=== PATIENT | female | born 1945 | race Caucasian/White ===

== ENCOUNTER 2020-11-05 08:06 | Outpatient (REF) | payer MEDICARE, SELFPAY ==
[2020-11-05 09:28] LABS: Estimated Average Glucose 114 mg/dL; Hemoglobin A1c % 5.6 %
[2020-11-05 09:46] LABS: Alanine Aminotransferase 21 U/L (0-31); Albumin Level 4.5 g/dL (3.5-5.0); Alkaline Phosphatase 48 U/L (39-117); Anion Gap 15 (12-20); Aspartate Amino Transferase 17 U/L (5-31); Bilirubin Total 0.8 mg/dL (0.0-1.0); Blood Urea Nitrogen 19 mg/dL (9-16); Calcium 10.1 mg/dL (8.4-10.2); Carbon Dioxide 33 mmol/L (22-29); Chloride 94 mmol/L (96-108); Cholesterol 170 mg/dL; Estimated Glomerular Filt Rate 58; Glucose Random 114 mg/dL (60-115); HDL Cholesterol 88 mg/dL; LDL Cholesterol Calculated 71 mg/dl; Potassium 3.9 mmol/l (3.3-5.1); Sodium 138 mmol/L (135-145); Total Protein 7.8 g/dL (6.5-8.0); Triglycerides 56 mg/dL
== END 2020-11-05 08:07 | disposition home or self-care (01) ==
LOC: HO.LAB 08:06
PROVIDERS: PCP Internal Medicine; Visit Provider Internal Medicine
DX: E11.9 Type 2 diabetes mellitus without complications (principal); I10 Essential (primary) hypertension; E03.8 Other specified hypothyroidism; E78.00 Pure hypercholesterolemia, unspecified; Z68.28 Body mass index [BMI] 28.0-28.9, adult
CPT/HCPCS: 36415; 80053; 80061; 83036

== ENCOUNTER 2020-12-04 08:53 | Outpatient (REF) | payer MEDICARE, SELFPAY ==
--- NOTE | ~2020-12-04 | FL_ITS ---
EXAMINATION: FL BARIUM SWALLOW CLINICAL INFORMATION: Dysphagia, postnasal drip COMPARISON: None TECHNIQUE: Barium swallow examination is performed using fluoroscopic evaluation in addition to multiple fluoroscopic spot views. The patient is imaged both upright and prone and using both thick and thin sulfate along with effervescent granules. Fluoroscopy time: 1.1 minutes DAP: 0.676 Gycm2 Images: 33 FINDINGS: Swallowing function is normal and there is no aspiration. The cervical esophagus has no web or diverticulum or stricture. The cervical thoracic junction appears normal. There is decreased primary thoracic peristaltic activity with some delayed transient of the swallowed bolus. There is no tertiary contractions. There is no functional or mechanical obstruction or stricture or ulceration. There is no hiatal hernia seen despite use of provocative maneuver (prone Valsalva). There is spontaneous gastroesophageal reflux noted during fluoroscopy to upper thoracic esophagus.. FL/FL barium swallow IMPRESSION: 1. Decreased primary esophageal peristalsis. No tertiary contractions. 2. Spontaneous gastroesophageal reflux to proximal thoracic esophagus. 3. No stricture or ulceration.
== END 2020-12-04 08:54 | disposition home or self-care (01) ==
LOC: HO.XRAY 08:53
PROVIDERS: PCP Internal Medicine; Visit Provider Internal Medicine
DX: R13.10 Dysphagia, unspecified (principal)
CPT/HCPCS: 74220

== ENCOUNTER 2021-02-02 08:28 | Outpatient (REF) | payer MEDICARE, SELFPAY ==
[2021-02-02 09:27] LABS: Estimated Average Glucose 111 mg/dL; Hemoglobin A1c % 5.5 %
[2021-02-02 09:31] LABS: Alanine Aminotransferase 25 U/L (0-31); Albumin Level 4.4 g/dL (3.5-5.0); Alkaline Phosphatase 46 U/L (39-117); Anion Gap 17 (12-20); Aspartate Amino Transferase 21 U/L (5-31); Bilirubin Total 0.7 mg/dL (0.0-1.0); Blood Urea Nitrogen 19 mg/dL (9-16); Calcium 9.7 mg/dL (8.4-10.2); Carbon Dioxide 28 mmol/L (22-29); Chloride 94 mmol/L (96-108); Estimated Glomerular Filt Rate > 60; Glucose Random 119 mg/dL (60-115); Potassium 3.7 mmol/L (3.3-5.1); Sodium 135 mmol/L (135-145); Total Protein 7.6 g/dL (6.5-8.0)
[2021-02-02 09:53] LABS: Thyroid Stimulating Hormone 2.09 uIU/mL (0.32-4.0)
== END 2021-02-02 08:29 | disposition home or self-care (01) ==
LOC: HO.LAB 08:28
PROVIDERS: PCP Internal Medicine; Visit Provider Internal Medicine
DX: E11.9 Type 2 diabetes mellitus without complications (principal); E78.00 Pure hypercholesterolemia, unspecified; E89.0 Postprocedural hypothyroidism; I10 Essential (primary) hypertension; R13.19 Other dysphagia
CPT/HCPCS: 36415; 80053; 83036; 84443

== ENCOUNTER 2021-06-16 10:51 | Outpatient (REF) | payer MEDICARE, SELFPAY ==
[2021-06-16 12:14] LABS: MANUAL DIFF FLAG NO
[2021-06-16 12:19] LABS: Basophils Percent Auto 0.4 % (0-2); Eosinophils Absolute Auto 0.1 X10*3/uL (0.0-0.4); Hematocrit 41.4 % (37-47); Hemoglobin 14.1 g/dl (12.0-16.0); Imm Gran Abs Auto 0.03 X10*3/uL (0.00-0.03); Imm Gran Pct Auto 0.6 % (0.0-0.4); Lymphocytes Absolute Auto 0.3 X10*3/uL (1.2-4.9); Lymphocytes Percent Auto 5.4 % (20-40); Mean Corpuscular HGB Conc 34.1 g/dl (31.0-35.0); Mean Corpuscular Hemoglobin 29.8 pg (27.0-33.0); Mean Corpuscular Volume 87.5 fL (80-98); Monocytes Absolute Auto 0.5 X10*3/uL (0.1-1.2); Monocytes Percent Auto 9.5 % (2-11); Neutrophils Percent Auto 83.1 % (45-73); Platelet Count 246 X10*3/uL (160-400); Red Blood Count 4.73 X10*6/uL (4.20-5.50); Red Cell Distribution Width 12.7 % (11.0-16.0); White Blood Count 4.8 X10*3/uL (4.8-10.8)
[2021-06-16 12:42] LABS: Alanine Aminotransferase 31 U/L (0-31); Albumin Level 4.5 g/dL (3.5-5.0); Alkaline Phosphatase 51 U/L (39-117); Aspartate Amino Transferase 16 U/L (5-31); Bilirubin Direct 0.3 mg/dL (0.0-0.5); Bilirubin Total 0.6 mg/dL (0.0-1.0); Total Protein 7.5 g/dL (6.5-8.0)
== END 2021-06-16 10:52 | disposition home or self-care (01) ==
LOC: HO.LAB 10:51
PROVIDERS: PCP Internal Medicine; Visit Provider Psychiatry & Neurology Neurology
DX: G35 Multiple sclerosis (principal)
CPT/HCPCS: 36415; 80076; 85025

== ENCOUNTER 2021-08-04 09:36 | Outpatient (REF) | payer MEDICARE, SELFPAY ==
[2021-08-04 10:04] LABS: Basophils Percent Auto 0.9 % (0-2); Eosinophils Absolute Auto 0.1 X10*3/uL (0.0-0.4); Eosinophils Percent Auto 3.9 % (0-4); Hematocrit 40.3 % (37-47); Hemoglobin 13.7 g/dl (12.0-16.0); Imm Gran Abs Auto 0.02 X10*3/uL (0.00-0.03); Imm Gran Pct Auto 0.9 % (0.0-0.4); Lymphocytes Absolute Auto 0.3 X10*3/uL (1.2-4.9); Lymphocytes Percent Auto 11.4 % (20-40); MANUAL DIFF FLAG SCAN; Mean Corpuscular Hemoglobin 29.8 pg (27.0-33.0); Mean Corpuscular Volume 87.8 fL (80-98); Mean Platelet Volume 9.5 fL (9.4-12.3); Monocytes Absolute Auto 0.3 X10*3/uL (0.1-1.2); Monocytes Percent Auto 13.1 % (2-11); Neutrophils Absolute Auto 1.6 X10*3/uL (2.0-8.3); Neutrophils Percent Auto 69.8 % (45-73); Platelet Count 236 X10*3/uL (160-400); Red Blood Count 4.59 X10*6/uL (4.20-5.50); Red Cell Distribution Width 13.2 % (11.0-16.0); SCAN SMEAR FLAG 1
[2021-08-04 10:07] LABS: White Blood Count 2.3 X10*3/uL (4.8-10.8)
[2021-08-04 10:19] LABS: Estimated Average Glucose 120 mg/dL; Hemoglobin A1c % 5.8 %
[2021-08-04 10:29] LABS: Alanine Aminotransferase 45 U/L (0-31); Albumin Level 4.6 g/dL (3.5-5.0); Alkaline Phosphatase 47 U/L (39-117); Anion Gap 13 (12-20); Aspartate Amino Transferase 26 U/L (5-31); Bilirubin Total 0.7 mg/dL (0.0-1.0); Blood Urea Nitrogen 13 mg/dL (9-16); Calcium 10.3 mg/dL (8.4-10.2); Carbon Dioxide 33 mmol/L (22-29); Chloride 94 mmol/L (96-108); Cholesterol 167 mg/dL; Estimated Glomerular Filt Rate 54; Glucose Random 125 mg/dL (60-115); HDL Cholesterol 79 mg/dL; LDL Cholesterol Calculated 77 mg/dl; Potassium 3.7 mmol/L (3.3-5.1); Sodium 136 mmol/L (135-145); Total Protein 7.7 g/dL (6.5-8.0); Triglycerides 55 mg/dL
[2021-08-04 10:50] LABS: Thyroid Stimulating Hormone 2.97 uIU/mL (0.32-4.0)
[2021-08-04 11:06] LABS: SLIDE REVIEW VERIFIED
== END 2021-08-04 09:37 | disposition home or self-care (01) ==
LOC: HO.LAB 09:36
PROVIDERS: PCP Internal Medicine; Visit Provider Internal Medicine
DX: E78.00 Pure hypercholesterolemia, unspecified (principal); E89.0 Postprocedural hypothyroidism; I10 Essential (primary) hypertension; R13.19 Other dysphagia; R73.01 Impaired fasting glucose
CPT/HCPCS: 36415; 80053; 80061; 83036; 84443; 85025

== ENCOUNTER 2021-11-12 08:07 | Outpatient (REF) | payer MEDICARE, SELFPAY ==
[2021-11-12 08:35] LABS: MANUAL DIFF FLAG NO
[2021-11-12 09:12] LABS: Eosinophils Absolute Auto 0.1 X10*3/uL (0.0-0.4); Eosinophils Percent Auto 4.1 % (0-4); Hematocrit 41.6 % (37.0-47.0); Hemoglobin 13.9 g/dl (12.0-16.0); Imm Gran Abs Auto 0.02 X10*3/uL (0.00-0.03); Imm Gran Pct Auto 0.7 % (0.0-0.4); Lymphocytes Absolute Auto 0.3 X10*3/uL (1.2-4.9); Lymphocytes Percent Auto 9.2 % (20-40); Mean Corpuscular HGB Conc 33.4 g/dl (31.0-35.0); Mean Corpuscular Hemoglobin 29.6 pg (27.0-33.0); Mean Corpuscular Volume 88.7 fL (80.0-98.0); Mean Platelet Volume 10.2 fL (9.4-12.3); Monocytes Absolute Auto 0.4 X10*3/uL (0.1-1.2); Neutrophils Absolute Auto 2.1 x10*3/uL (2.0-8.3); Platelet Count 245 X10*3/uL (160-400); Red Blood Count 4.69 X10*6/uL (4.20-5.50); Red Cell Distribution Width 13.1 % (11.0-16.0); White Blood Count 2.9 X10*3/uL (4.8-10.8)
[2021-11-12 09:29] LABS: Creatinine Urine 211.76 mg/dL; Microalbum/Creatinine Ratio Ur 13.6 ug/mg cr
[2021-11-12 09:34] LABS: Estimated Average Glucose 120 mg/dL; Hemoglobin A1C 150.4382 umol/L; Hemoglobin A1c % 5.8 %
[2021-11-12 09:36] LABS: Calcium 10.2 mg/dL (8.4-10.2); Phosphorus 3.4 mg/dL (2.7-4.5)
[2021-11-12 10:01] LABS: Vitamin D 25-OH Total 38.9 ng/mL (>30)
[2021-11-13 13:06] LABS: PTHI 36 pg/mL (14-64)
== END 2021-11-12 08:08 | disposition home or self-care (01) ==
LOC: HO.LAB 08:07
PROVIDERS: PCP Internal Medicine; Visit Provider Internal Medicine
DX: E78.00 Pure hypercholesterolemia, unspecified (principal); E83.52 Hypercalcemia; E89.0 Postprocedural hypothyroidism; I10 Essential (primary) hypertension
CPT/HCPCS: 36415; 82043; 82306; 82310; 83036; 83970; 84100; 85025

== ENCOUNTER 2021-12-15 10:50 | Outpatient (REF) | payer MEDICARE, SELFPAY ==
[2021-12-15 12:39] LABS: Alanine Aminotransferase 30 U/L (0-31); Albumin Level 4.4 g/dL (3.5-5.0); Alkaline Phosphatase 48 U/L (39-117); Aspartate Amino Transferase 22 U/L (5-31); Bilirubin Direct 0.3 mg/dL (0.0-0.5); Bilirubin Total 0.7 mg/dL (0.0-1.0); Total Protein 7.6 g/dL (6.5-8.0)
== END 2021-12-15 10:51 | disposition home or self-care (01) ==
LOC: HO.LAB 10:50
PROVIDERS: PCP Internal Medicine; Visit Provider Psychiatry & Neurology Neurology
DX: G35 Multiple sclerosis (principal)
CPT/HCPCS: 36415; 80076

== ENCOUNTER 2022-04-05 09:21 | Outpatient (REF) | payer MEDICARE, SELFPAY ==
[2022-04-05 10:16] LABS: Estimated Average Glucose 117 mg/dL; Hemoglobin A1c % 5.7 %
[2022-04-05 10:52] LABS: Alanine Aminotransferase 48 U/L (0-31); Albumin Level 4.3 g/dL (3.5-5.0); Alkaline Phosphatase 52 U/L (39-117); Anion Gap 14 (12-20); Aspartate Amino Transferase 35 U/L (5-31); Bilirubin Total 0.7 mg/dL (0.0-1.0); Blood Urea Nitrogen 17 mg/dL (9-16); Calcium 9.7 mg/dL (8.4-10.2); Carbon Dioxide 34 mmol/L (22-29); Chloride 82 mmol/L (96-108); Cholesterol 149 mg/dL; Estimated Glomerular Filt Rate > 60; Glucose Random 125 mg/dL (60-115); HDL Cholesterol 71 mg/dL; LDL Cholesterol Calculated 66 mg/dl; Potassium 3.8 mmol/L (3.3-5.1); Sodium 126 mmol/L (135-145); Total Protein 7.9 g/dL (6.5-8.0); Triglycerides 61 mg/dL
[2022-04-05 11:03] LABS: Thyroid Stimulating Hormone 3.24 uIU/mL (0.32-4.0)
== END 2022-04-05 09:22 | disposition home or self-care (01) ==
LOC: HO.LAB 09:21
PROVIDERS: PCP Internal Medicine; Visit Provider Internal Medicine
DX: E11.9 Type 2 diabetes mellitus without complications (principal); E78.00 Pure hypercholesterolemia, unspecified; E83.52 Hypercalcemia; E89.0 Postprocedural hypothyroidism
CPT/HCPCS: 36415; 80053; 80061; 83036; 84443

== ENCOUNTER 2022-04-20 07:58 | Outpatient (REF) | payer MEDICARE, SELFPAY ==
[2022-04-20 09:18] LABS: Alanine Aminotransferase 33 U/L (0-31); Albumin Level 4.2 g/dL (3.5-5.0); Alkaline Phosphatase 46 U/L (39-117); Anion Gap 13 (12-20); Aspartate Amino Transferase 21 U/L (5-31); Bilirubin Total 0.6 mg/dL (0.0-1.0); Blood Urea Nitrogen 11 mg/dL (9-16); Calcium 9.5 mg/dL (8.4-10.2); Carbon Dioxide 33 mmol/L (22-29); Chloride 91 mmol/L (96-108); Estimated Glomerular Filt Rate 59; Glucose Random 128 mg/dL (60-115); Potassium 3.1 mmol/L (3.3-5.1); Sodium 134 mmol/L (135-145); Total Protein 7.4 g/dL (6.5-8.0)
== END 2022-04-20 07:59 | disposition home or self-care (01) ==
LOC: HO.LAB 07:58
PROVIDERS: PCP Internal Medicine; Visit Provider Internal Medicine
DX: E03.8 Other specified hypothyroidism (principal); E87.1 Hypo-osmolality and hyponatremia; F32.9 Major depressive disorder, single episode, unspecified; I10 Essential (primary) hypertension; R43.2 Parageusia; R53.83 Other fatigue
CPT/HCPCS: 36415; 80053

== ENCOUNTER 2022-05-17 08:44 | Outpatient (REF) | payer MEDICARE, SELFPAY ==
[2022-05-17 11:00] LABS: Alanine Aminotransferase 24 U/L (0-31); Albumin Level 4.4 g/dL (3.5-5.0); Alkaline Phosphatase 46 U/L (39-117); Anion Gap 14 (12-20); Aspartate Amino Transferase 19 U/L (5-31); Bilirubin Total 0.5 mg/dL (0.0-1.0); Blood Urea Nitrogen 17 mg/dL (9-16); Calcium 9.6 mg/dL (8.4-10.2); Carbon Dioxide 29 mmol/L (22-29); Chloride 94 mmol/L (96-108); Estimated Glomerular Filt Rate > 60; Glucose Random 115 mg/dL (60-115); Potassium 3.7 mmol/L (3.3-5.1); Sodium 133 mmol/L (135-145); Total Protein 7.6 g/dL (6.5-8.0)
== END 2022-05-17 08:45 | disposition home or self-care (01) ==
LOC: HO.LAB 08:44
PROVIDERS: PCP Internal Medicine; Visit Provider Internal Medicine
DX: E03.8 Other specified hypothyroidism (principal); E87.1 Hypo-osmolality and hyponatremia; E87.6 Hypokalemia; F32.5 Major depressive disorder, single episode, in full remission; I10 Essential (primary) hypertension; R63.4 Abnormal weight loss
CPT/HCPCS: 36415; 80053

== ENCOUNTER 2022-08-12 09:24 | Outpatient (REF) | payer MEDICARE, SELFPAY ==
[2022-08-12 09:48] LABS: MANUAL DIFF FLAG NO
[2022-08-12 10:52] LABS: Basophils Percent Auto 1.1 % (0-2); Eosinophils Absolute Auto 0.1 X10*3/uL (0.0-0.4); Eosinophils Percent Auto 4.1 % (0-4); Hematocrit 44.4 % (37.0-47.0); Hemoglobin 14.5 g/dl (12.0-16.0); Imm Gran Abs Auto 0.01 X10*3/uL (0.00-0.03); Imm Gran Pct Auto 0.4 % (0.0-0.4); Lymphocytes Absolute Auto 0.3 X10*3/uL (1.2-4.9); Lymphocytes Percent Auto 9.2 % (20-40); Mean Corpuscular HGB Conc 32.7 g/dl (31.0-35.0); Mean Corpuscular Volume 88.8 fL (80.0-98.0); Mean Platelet Volume 10.3 fL (9.4-12.3); Monocytes Absolute Auto 0.3 X10*3/uL (0.1-1.2); Monocytes Percent Auto 11.4 % (2-11); Neutrophils Percent Auto 73.8 % (45-73); Platelet Count 247 X10*3/uL (160-400); Red Cell Distribution Width 13.3 % (11.0-16.0); White Blood Count 2.7 X10*3/uL (4.8-10.8)
[2022-08-12 11:23] LABS: Alanine Aminotransferase 15 U/L (0-31); Albumin Level 4.6 g/dL (3.5-5.0); Alkaline Phosphatase 60 U/L (39-117); Anion Gap 17 (12-20); Aspartate Amino Transferase 14 U/L (5-31); Bilirubin Total 0.3 mg/dL (0.0-1.0); Blood Urea Nitrogen 12 mg/dL (9-16); Calcium 10.3 mg/dL (8.4-10.2); Carbon Dioxide 29 mmol/L (22-29); Chloride 100 mmol/L (96-108); Cholesterol 222 mg/dL; Estimated Glomerular Filt Rate > 60; Glucose Random 108 mg/dL (60-115); HDL Cholesterol 79 mg/dL; LDL Cholesterol Calculated 130 mg/dl; Potassium 4.3 mmol/L (3.3-5.1); Sodium 142 mmol/L (135-145); Total Protein 7.9 g/dL (6.5-8.0); Triglycerides 66 mg/dL
[2022-08-12 11:46] LABS: Vitamin B12 > 2000 pg/mL (200-900)
[2022-08-12 11:50] LABS: Thyroid Stimulating Hormone 2.21 uIU/mL (0.32-4.0); Vitamin D 25-OH Total 36.3 ng/mL (>30)
== END 2022-08-12 09:25 | disposition home or self-care (01) ==
LOC: HO.LAB 09:24
PROVIDERS: PCP Internal Medicine; Visit Provider Internal Medicine
DX: E03.8 Other specified hypothyroidism (principal); E87.1 Hypo-osmolality and hyponatremia; E87.6 Hypokalemia; F32.5 Major depressive disorder, single episode, in full remission; I10 Essential (primary) hypertension; M51.16 Intervertebral disc disorders with radiculopathy, lumbar region
CPT/HCPCS: 36415; 80053; 80061; 82306; 82607; 84443; 85025

== ENCOUNTER 2023-02-14 08:42 | Outpatient (REF) | payer MEDICARE, SELFPAY ==
[2023-02-14 09:06] LABS: MANUAL DIFF FLAG NO
[2023-02-14 09:59] LABS: Eosinophils Absolute Auto 0.2 X10*3/uL (0.0-0.4); Eosinophils Percent Auto 4.6 % (0-4); Hematocrit 44.8 % (37.0-47.0); Hemoglobin 14.6 g/dl (12.0-16.0); Imm Gran Abs Auto 0.05 X10*3/uL (0.00-0.03); Imm Gran Pct Auto 1.2 % (0.0-0.4); Lymphocytes Absolute Auto 0.4 X10*3/uL (1.2-4.9); Lymphocytes Percent Auto 10.5 % (20-40); Mean Corpuscular HGB Conc 32.6 g/dl (31.0-35.0); Mean Corpuscular Volume 89.1 fL (80.0-98.0); Mean Platelet Volume 10.4 fL (9.4-12.3); Monocytes Absolute Auto 0.4 X10*3/uL (0.1-1.2); Monocytes Percent Auto 9.5 % (2-11); Neutrophils Percent Auto 73.2 % (45-73); Platelet Count 227 X10*3/uL (160-400); Red Blood Count 5.03 X10*6/uL (4.20-5.50); Red Cell Distribution Width 13.5 % (11.0-16.0); White Blood Count 4.1 X10*3/uL (4.8-10.8)
[2023-02-14 11:06] LABS: Alanine Aminotransferase 31 U/L (0-31); Albumin Level 4.4 g/dL (3.5-5.0); Alkaline Phosphatase 55 U/L (39-117); Anion Gap 15 (12-20); Aspartate Amino Transferase 24 U/L (5-31); Bilirubin Total 0.6 mg/dL (0.0-1.0); Blood Urea Nitrogen 16 mg/dL (9-16); Calcium 9.7 mg/dL (8.4-10.2); Carbon Dioxide 27 mmol/L (22-29); Chloride 105 mmol/L (96-108); Estimated Glomerular Filt Rate 58; Glucose Random 111 mg/dL (60-115); Potassium 4.6 mmol/L (3.3-5.1); Sodium 142 mmol/L (135-145); Total Protein 7.7 g/dL (6.5-8.0)
[2023-02-14 11:12] LABS: Thyroid Stimulating Hormone 4.29 uIU/mL (0.32-4.0)
== END 2023-02-14 08:43 | disposition home or self-care (01) ==
LOC: HO.LAB 08:42
PROVIDERS: PCP Internal Medicine; Visit Provider Internal Medicine
DX: E89.0 Postprocedural hypothyroidism (principal); G35 Multiple sclerosis; I10 Essential (primary) hypertension; M62.831 Muscle spasm of calf
CPT/HCPCS: 36415; 80053; 84443; 85025

== ENCOUNTER 2023-08-12 07:57 | Outpatient (REF) | payer MEDICARE, SELFPAY ==
[2023-08-12 08:14] LABS: MANUAL DIFF FLAG NO
[2023-08-12 08:37] LABS: Basophils Absolute Auto 0.1 X10*3/uL (0.0-0.2); Basophils Percent Auto 1.4 % (0-2); Eosinophils Absolute Auto 0.1 X10*3/uL (0.0-0.4); Eosinophils Percent Auto 3.4 % (0-4); Hematocrit 43.3 % (37.0-47.0); Hemoglobin 14.6 g/dl (12.0-16.0); Imm Gran Abs Auto 0.03 X10*3/uL (0.00-0.03); Imm Gran Pct Auto 0.8 % (0.0-0.4); Lymphocytes Absolute Auto 0.3 X10*3/uL (1.2-4.9); Lymphocytes Percent Auto 9.3 % (20-40); Mean Corpuscular HGB Conc 33.7 g/dl (31.0-35.0); Mean Corpuscular Hemoglobin 29.7 pg (27.0-33.0); Mean Corpuscular Volume 88.2 fL (80.0-98.0); Mean Platelet Volume 9.7 fL (9.4-12.3); Monocytes Absolute Auto 0.4 X10*3/uL (0.1-1.2); Monocytes Percent Auto 11.3 % (2-11); Neutrophils Absolute Auto 2.6 x10*3/uL (2.0-8.3); Neutrophils Percent Auto 73.8 % (45-73); Platelet Count 246 X10*3/uL (160-400); Red Blood Count 4.91 X10*6/uL (4.20-5.50); Red Cell Distribution Width 13.2 % (11.0-16.0); White Blood Count 3.5 X10*3/uL (4.8-10.8)
[2023-08-12 09:09] LABS: Alanine Aminotransferase 40 U/L (0-31); Albumin Level 4.6 g/dL (3.5-5.0); Alkaline Phosphatase 49 U/L (39-117); Anion Gap 18 (12-20); Aspartate Amino Transferase 22 U/L (5-31); Bilirubin Total 0.6 mg/dL (0.0-1.0); Blood Urea Nitrogen 13 mg/dL (9-16); Calcium 10.3 mg/dL (8.4-10.2); Carbon Dioxide 29 mmol/L (22-29); Chloride 92 mmol/L (96-108); Cholesterol 236 mg/dL (<200); Estimated Glomerular Filt Rate > 60; Glucose Random 128 mg/dL (60-115); HDL Cholesterol 80 mg/dL (>40); LDL Cholesterol Calculated 141 mg/dL (<100); Potassium 3.3 mmol/L (3.3-5.1); Sodium 136 mmol/L (135-145); Triglycerides 79 mg/dL (<150)
[2023-08-12 09:29] LABS: Thyroid Stimulating Hormone 3.54 uIU/mL (0.32-4.0); Vitamin B12 > 2000 pg/mL (200-900); Vitamin D 25-OH Total 48.9 ng/mL (>30)
== END 2023-08-12 07:58 | disposition home or self-care (01) ==
LOC: HO.LAB 07:57
PROVIDERS: PCP Internal Medicine; Visit Provider Internal Medicine
DX: E89.0 Postprocedural hypothyroidism (principal); I10 Essential (primary) hypertension; K21.9 Gastro-esophageal reflux disease without esophagitis; R63.5 Abnormal weight gain; M81.8 Other osteoporosis without current pathological fracture
CPT/HCPCS: 36415; 80053; 80061; 82306; 82607; 84443; 85025

== ENCOUNTER 2023-11-14 08:37 | Outpatient (REF) | payer MEDICARE, SELFPAY ==
[2023-11-14 10:03] LABS: Estimated Average Glucose 114 mg/dL; Hemoglobin A1c % 5.6 % (<6.0)
[2023-11-14 10:45] LABS: Alanine Aminotransferase 49 U/L (0-31); Albumin Level 4.3 g/dL (3.5-5.0); Alkaline Phosphatase 52 U/L (39-117); Anion Gap 15 (12-20); Aspartate Amino Transferase 27 U/L (5-31); Bilirubin Total 0.8 mg/dL (0.0-1.0); Blood Urea Nitrogen 14 mg/dL (9-16); Calcium 9.8 mg/dL (8.4-10.2); Carbon Dioxide 28 mmol/L (22-29); Chloride 96 mmol/L (96-108); Estimated Glomerular Filt Rate 60; Glucose Random 113 mg/dL (60-115); Potassium 3.5 mmol/L (3.3-5.1); Sodium 135 mmol/L (135-145); Total Protein 7.8 g/dL (6.5-8.0)
== END 2023-11-14 08:38 | disposition home or self-care (01) ==
LOC: HO.LAB 08:37
PROVIDERS: PCP Internal Medicine; Visit Provider Internal Medicine
DX: E89.0 Postprocedural hypothyroidism (principal); H26.9 Unspecified cataract; I10 Essential (primary) hypertension; K21.9 Gastro-esophageal reflux disease without esophagitis; R73.01 Impaired fasting glucose; R74.01 Elevation of levels of liver transaminase levels
CPT/HCPCS: 36415; 80053; 83036

== ENCOUNTER 2023-11-29 09:47 | Outpatient (REF) | payer MEDICARE, SELFPAY ==
[2023-11-29 11:33] LABS: Thyroid Stimulating Hormone 2.85 uIU/mL (0.32-4.0); Vitamin D 25-OH Total 39.1 ng/mL (>30)
[2023-11-29 11:40] LABS: Vitamin B12 697 pg/mL (200-900)
== END 2023-11-29 09:48 | disposition home or self-care (01) ==
LOC: HO.LAB 09:47
PROVIDERS: PCP Internal Medicine; Visit Provider Internal Medicine
DX: E89.0 Postprocedural hypothyroidism (principal); I10 Essential (primary) hypertension; R53.83 Other fatigue; R74.01 Elevation of levels of liver transaminase levels
CPT/HCPCS: 36415; 82306; 82607; 84443

== ENCOUNTER 2024-05-17 08:04 | Outpatient (REF) | payer MEDICARE, SELFPAY ==
[2024-05-17 08:21] LABS: MANUAL DIFF FLAG NO
[2024-05-17 08:55] LABS: Eosinophils Absolute Auto 0.1 X10*3/uL (0.0-0.4); Hemoglobin 14.6 g/dl (12.0-16.0); Imm Gran Abs Auto 0.03 X10*3/uL (0.00-0.03); Imm Gran Pct Auto 0.7 % (0.0-0.4); Lymphocytes Absolute Auto 0.4 X10*3/uL (1.2-4.9); Lymphocytes Percent Auto 9.2 % (20-40); Mean Corpuscular Hemoglobin 29.9 pg (27.0-33.0); Mean Corpuscular Volume 87.9 fL (80.0-98.0); Mean Platelet Volume 10.5 fL (9.4-12.3); Monocytes Absolute Auto 0.5 X10*3/uL (0.1-1.2); Neutrophils Percent Auto 74.1 % (45-73); Platelet Count 230 X10*3/uL (160-400); Red Blood Count 4.89 X10*6/uL (4.20-5.50); Red Cell Distribution Width 13.9 % (11.0-16.0)
[2024-05-17 09:26] LABS: Alanine Aminotransferase 36 U/L (0-31); Albumin Level 4.5 g/dL (3.5-5.0); Alkaline Phosphatase 52 U/L (39-117); Anion Gap 19 (12-20); Aspartate Amino Transferase 22 U/L (5-31); Bilirubin Total 0.7 mg/dL (0.0-1.0); Blood Urea Nitrogen 12 mg/dL (9-16); Calcium 10.2 mg/dL (8.4-10.2); Carbon Dioxide 29 mmol/L (22-29); Chloride 91 mmol/L (96-108); Estimated Glomerular Filt Rate 58; Glucose Random 138 mg/dL (60-115); Potassium 3.5 mmol/L (3.3-5.1); Sodium 135 mmol/L (135-145); Total Protein 7.9 g/dL (6.5-8.0)
[2024-05-17 09:44] LABS: Thyroid Stimulating Hormone 5.33 uIU/mL (0.32-4.0); Vitamin D 25-OH Total 46.3 ng/mL (>30)
[2024-05-17 11:12] LABS: Folate 6.8 ng/mL (> or = 4.0); Vitamin B12 521 pg/mL (200-900)
== END 2024-05-17 08:05 | disposition home or self-care (01) ==
LOC: HO.LAB 08:04
PROVIDERS: PCP Internal Medicine; Visit Provider Internal Medicine
DX: I10 Essential (primary) hypertension (principal); R53.83 Other fatigue; R74.01 Elevation of levels of liver transaminase levels
CPT/HCPCS: 36415; 80053; 82306; 82607; 82746; 84443; 85025

== ENCOUNTER 2024-08-21 08:08 | Outpatient (REF) | payer MEDICARE, SELFPAY ==
[2024-08-21 10:27] LABS: Estimated Average Glucose 120 mg/dL; Hemoglobin A1C 152.4455 umol/L; Hemoglobin A1c % 5.8 % (<6.0); Total Hemoglobin (HGBA1C) 3829.2533 umol/L
[2024-08-21 10:34] LABS: Creatinine Urine 404.97 mg/dL; Microalbum/Creatinine Ratio Ur 18.7 ug/mg cr (<30)
[2024-08-21 10:38] LABS: Alanine Aminotransferase 31 U/L (0-31); Albumin Level 4.4 g/dL (3.5-5.0); Alkaline Phosphatase 47 U/L (39-117); Anion Gap 19 (12-20); Aspartate Amino Transferase 28 U/L (5-31); Bilirubin Total 0.7 mg/dL (0.0-1.0); Blood Urea Nitrogen 17 mg/dL (9-16); Calcium 10.4 mg/dL (8.4-10.2); Carbon Dioxide 29 mmol/L (22-29); Chloride 93 mmol/L (96-108); Estimated Glomerular Filt Rate > 60; Glucose Random 127 mg/dL (60-115); Potassium 3.3 mmol/L (3.3-5.1); Sodium 138 mmol/L (135-145); Total Protein 7.8 g/dL (6.5-8.0)
[2024-08-21 10:42] LABS: Thyroid Stimulating Hormone 3.79 uIU/mL (0.32-4.0)
== END 2024-08-21 08:09 | disposition home or self-care (01) ==
LOC: HO.LAB 08:08
PROVIDERS: PCP Internal Medicine; Visit Provider Internal Medicine
DX: E89.0 Postprocedural hypothyroidism (principal); M23.92 Unspecified internal derangement of left knee; R00.0 Tachycardia, unspecified; R73.01 Impaired fasting glucose
CPT/HCPCS: 36415; 80053; 82043; 82570; 83036; 84443

== ENCOUNTER 2024-09-24 10:18 | Outpatient (AMB) | payer MEDICARE, SELFPAY ==
--- NOTE | 2024-09-24 10:46 | A.OFFVIS_ITS ---
Vital Signs 09/24/24 10:54 Height 5 ft 5 in Weight 159 lb BMI 26.5 Intake Visit Reasons: Lesion on scalp Intake Note: This patient presents for lesion of scalp. Pt c/o; reports no pain, No pain, but I know they are there . 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 She says she has had this for years. She feels that these have been increasing in size and have been bothering her as she picks on this. She wants both of these lesions removed. [facility] Medical History (Updated 09/24/24 @ 11:02 by Levar Fenton MD) Skin lesion of scalp Arthritis Multiple sclerosis Surgical History (Updated 09/24/24 @ 10:57 by REE Allison) No pertinent past surgical history Family History (Updated 09/24/24 @ 10:57 by REE Allison) Other Family history unknown Social History (Updated 09/24/24 @ 10:57 by REE Allison) Unable to assess alcohol history related to: Unknown Patient Tobacco Use Status: Tobacco use Unknown Review of Systems Const Denies chills and Denies fever(s) Card Denies chest pain, Denies dyspnea and Denies dyspnea on exertion Resp Denies cough, Denies dyspnea and Denies dyspnea on exertion GI Denies hematochezia and Denies change in bowel habits Denies hematuria Musc Reports abnormal gait, Reports back pain, Reports arthralgias and Denies limited range of motion Neuro Reports abnormal gait, Denies focal weakness and Denies convulsions Psych Denies depression and Denies mood swings Physical Exam Vital Signs: BMI result Body Mass Index 26.5 Const General: comfortable and no acute distress Orientation/consciousness: patient oriented x3 HEENT Other: Scalp lesions x2 on the parietal area, 1st 1: 1.3 cm in widest dimension; 2nd lesion about 0.8 cm. These are adjacent to each other Neck Neck: Yes no lymphadenopathy Resp Auscultation: clear to auscultation bilaterally Cardio Rhythm: regular rhythm GI Palpation (GI): Soft to palpation, nontender and no guarding Neuro General: patient oriented x3 Assessment & Plan Assessment & Plan (1) Skin lesion of scalp: Code(s): L98.9 - Disorder of the skin and subcutaneous tissue, unspecified Category: Medical Plan: She wants to have both lesions excised. I explained the technique of excision under local anesthesia. I reviewed the risks including but not limited to bleeding, infections, poor healing, as well as the benefits and alternatives. She understands and wants to proceed. He will be done on her next visit here in the office. Coding Level of Care Code New Pt Level 3 (54510) Diagnoses Skin lesion of scalp L98.9
[2024-09-24 10:54] VITALS: BMI 26.5
== END 2024-09-24 11:05 | disposition home or self-care (01) ==
PROVIDERS: PCP Internal Medicine; Referring Provider Internal Medicine; Visit Provider Surgery
DX: L98.9 Disorder of the skin and subcutaneous tissue, unspecified (principal)
CPT/HCPCS: 99203

== ENCOUNTER → 2024-09-24 10:18 | Outpatient (BNVA) | payer MEDICARE, SELFPAY | PROVIDERS: PCP Internal Medicine; Referring Provider Internal Medicine; Visit Provider Surgery | DX: L98.9 Disorder of the skin and subcutaneous tissue, unspecified (principal) | CPT/HCPCS: 99202 ==

== ENCOUNTER 2024-10-04 09:08 | Outpatient (REF) | payer MEDICARE, SELFPAY | END 2024-10-04 09:09 | disposition home or self-care (01) | LOC: HO.LNP 09:08 | PROVIDERS: PCP Internal Medicine; Visit Provider Surgery | DX: C44.42 Squamous cell carcinoma of skin of scalp and neck (principal) | CPT/HCPCS: 11622; 88305 ==

== ENCOUNTER 2024-10-04 09:08 | Outpatient (AMB) | payer MEDICARE, SELFPAY ==
--- NOTE | 2024-10-04 09:11 | A.OFFVIS_ITS ---
Vital Signs 10/04/24 09:22 Height 5 ft 5 in Weight 146 lb BMI 24.3 BP 144/69 H Blood Pressure Location Rt brachial Position Sitting Pulse 76 Intake Visit Reasons: excision scalp lesions x2 Intake Note: Office procedure: excision scalp lesions x2 Court Commissioner Required: No Accompanied by: Spouse Allergies minerals [Enviro Stress] Allergy (Unknown, Verified 10/04/24 09:23) Unknown vitamin B complex and C [Enviro Stress] Allergy (Unknown, Verified 10/04/24 09:23) Unknown vitamin E (d-alpha tocopherol) [Enviro Stress] Allergy (Unknown, Verified 10/04/24 09:23) Unknown HPI HPI excision scalp lesions x2: Details: She is here for excision of 2 lesions. [facility] Medical History Skin lesion of scalp Arthritis Multiple sclerosis Surgical History No pertinent past surgical history Family History Other Family history unknown Social History Unable to assess alcohol history related to: Unknown Patient Tobacco Use Status: Tobacco use Unknown Physical Exam Vital Signs: Last Vital Signs Pulse 76 10/04/24 09:22 BP 144/69 H 10/04/24 09:22 BMI result Body Mass Index 24.3 Office Procedures Excision Details: She was placed in reclining position. She had 2 lesions in the scalp. Both of these were on the parietal area. The anterior wall was about 1 cm in diameter. The posterior 1 was about 1.3 cm in diameter I prepped and draped the areas. I used lidocaine to infiltrate for local anesthesia. I made an elliptical incision starting with the more posterior lesion with a blade 15. This carried down through the full-thickness of the skin subcutaneous fat to excise this entire lesion. I closed this incision with full-thickness nylon 3-0 simple interrupted sutures. I proceeded to excise the 2nd lesion more anteriorly in the same manner. The incision was also closed with full-thickness nylon 3-0 simple interrupted sutures The aggregate under of both lesions was therefore about 2.3 cm She tolerated procedure well. Bacitracin dressings were applied. She was given wound care instructions. There was minimal blood loss. [id number] scalp/neck/hands/feet/genitalia 2.1cm-3cm Procedure code (CPT) selection complete Assessment & Plan Assessment & Plan (1) Skin lesion of scalp: Code(s): L98.9 - Disorder of the skin and subcutaneous tissue, unspecified Category: Medical Plan: Two scalp lesions were removed as described above. He was given wound care instructions and will be seen for removal of sutures Coding Level of Care Code Procedure Only Diagnoses Skin lesion of scalp L98.9 CPT Codes Scalp/Neck/Hands/Feet/Genetalia - CPT: 06597-[id number] scalp/neck/hands/feet/genitalia 2.1cm-3cm ([id number])
[2024-10-04 09:22] VITALS: BP 144/69; PULSE 76; BMI 24.3
== END 2024-10-04 09:50 | disposition home or self-care (01) ==
PROVIDERS: PCP Internal Medicine; Visit Provider Surgery
DX: C44.42 Squamous cell carcinoma of skin of scalp and neck (principal)
CPT/HCPCS: 11622

== ENCOUNTER 2024-10-22 09:38 | Outpatient (AMB) | payer MEDICARE, SELFPAY ==
--- NOTE | 2024-10-22 09:44 | MHC.OFFVIS ---
Vital Signs 10/22/24 09:49 Height 5 ft 5 in Weight 146 lb BMI 24.3 Intake Visit Reasons: s/p excision scalp lesions x2 Intake Note: This patient presents for a follow-up assessment status post office procedure for excision scalp lesions x2. Pt c/o; reports no complaints at this time. Account Services Associate Required: No Accompanied by: Self / Same As Patient Allergies minerals [Enviro Stress] Allergy (Unknown, Verified 10/22/24 09:48) Unknown vitamin B complex and C [Enviro Stress] Allergy (Unknown, Verified 10/22/24 09:48) Unknown vitamin E (d-alpha tocopherol) [Enviro Stress] Allergy (Unknown, Verified 10/22/24 09:48) Unknown [facility] Medical History Skin lesion of scalp Arthritis Multiple sclerosis Surgical History History of excision of lesion (~10/04/24) Family History Other Family history unknown Social History Unable to assess alcohol history related to: Unknown Patient Tobacco Use Status: Tobacco use Unknown Physical Exam Vital Signs: BMI result Body Mass Index 24.3 Assessment & Plan Assessment & Plan (1) Skin lesion of scalp: Code(s): L98.9 - Disorder of the skin and subcutaneous tissue, unspecified Category: Medical Plan: 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 The 1 on the posterior showed extension to the deep margins. Her sutures were removed. I will see her again in the office to follow-up and re-excise if there is suggestion of recurrence. Coding Level of Care Code Global (49926) Diagnoses Skin lesion of scalp L98.9
[2024-10-22 09:49] VITALS: BMI 24.3
== END 2024-10-22 10:27 | disposition home or self-care (01) ==
PROVIDERS: PCP Internal Medicine; Visit Provider Surgery
DX: L98.9 Disorder of the skin and subcutaneous tissue, unspecified (principal)
CPT/HCPCS: 99024

== ENCOUNTER → 2024-10-22 09:38 | Outpatient (BNVA) | payer MEDICARE, SELFPAY | PROVIDERS: PCP Internal Medicine; Visit Provider Surgery | DX: Z48.1 Encounter for planned postprocedural wound closure (principal); Z87.2 Personal history of diseases of the skin and subcutaneous tissue | CPT/HCPCS: 99212 ==

== ENCOUNTER 2024-11-15 09:33 | Outpatient (AMB) | payer MEDICARE, SELFPAY ==
--- NOTE | 2024-11-15 09:37 | MHC.OFFVIS ---
Vital Signs 11/15/24 09:46 Height 5 ft 5 in Weight 145 lb 15.983 oz BMI 24.3 Intake Visit Reasons: Re-excision scalp lesions (+margin) Intake Note: Office procedure: Re-excision scalp lesions (+margin) Industrial Pharmacist Required: No Accompanied by: Self / Same As Patient Allergies minerals [Enviro Stress] Allergy (Unknown, Verified 11/15/24 09:47) Unknown vitamin B complex and C [Enviro Stress] Allergy (Unknown, Verified 11/15/24 09:47) Unknown vitamin E (d-alpha tocopherol) [Enviro Stress] Allergy (Unknown, Verified 11/15/24 09:47) Unknown HPI HPI Re-excision scalp lesions (+margin): Details: She is here because of previous excision of a scalp lesion which turned out to have atypical proliferation. The deep margins were positive so I had asked her to come back to be re-examined. She denies any significant complaints at this time. [facility], [facility] Medical History Skin lesion of scalp Arthritis Multiple sclerosis Surgical History History of excision of lesion (~10/04/24) Family History Other Family history unknown Social History Unable to assess alcohol history related to: Unknown Patient Tobacco Use Status: Tobacco use Unknown Review of Systems Const Denies chills and Denies fever(s) Card Denies chest pain Resp Denies cough GI Denies abdominal pain Physical Exam Vital Signs: BMI result Body Mass Index 24.3 Const General: comfortable and no acute distress HEENT Other: Previous excision site clean well healed, no obvious recurrent lesion Resp Effort & Inspection: normal respiratory effort Assessment & Plan Assessment & Plan (1) Skin lesion of scalp: Code(s): L98.9 - Disorder of the skin and subcutaneous tissue, unspecified Category: Medical Plan: She had atypical squamous proliferation in the deep margin a 1 of the lesions. Exam does not suggest any recurrence. I will continue to follow closely. I will see her in the office in another 2-3 months. Coding Level of Care Code Est Pt Level 2 (70355) Diagnoses Skin lesion of scalp L98.9
[2024-11-15 09:46] VITALS: BMI 24.3
== END 2024-11-15 09:56 | disposition home or self-care (01) ==
PROVIDERS: PCP Internal Medicine; Visit Provider Surgery
DX: L98.9 Disorder of the skin and subcutaneous tissue, unspecified (principal)
CPT/HCPCS: 99212

== ENCOUNTER → 2024-11-15 09:33 | Outpatient (BNVA) | payer MEDICARE, SELFPAY | PROVIDERS: PCP Internal Medicine; Visit Provider Surgery | DX: Z87.2 Personal history of diseases of the skin and subcutaneous tissue (principal) | CPT/HCPCS: 99212 ==

== ENCOUNTER 2024-12-03 08:16 | Outpatient (REF) | payer MEDICARE, SELFPAY ==
--- OUTSIDE RECORDS SUMMARY | 2024-12-03 08:29 | XMS_ITS | Clinical Summary ---
Author Organization [facility] it Address [address] [place] [address] Care Team Providers Care Strategic Debriefing Specialist Name Role Phone Unavailable Primary Care Provider Unavailabl e Social History Tobacco Use Types Packs/Day Years Used Date Smoking Tobacco: Never Assessed Comments Unknown Sex and Gender Information Value Date Recorded Sex Assigned at Not on file Legal Sex Female 3:40 PM EST Gender Identity Not on file Sexual Orientation Not on file Plan of Treatment Health Maintenance Due Date Last Done Comments DTaP,Tdap,and Td Vaccines (1 - Tdap) 1952 Pneumococcal Vaccine: 50+ Ye ars (1 of 1 - PCV) 1995 Zoster Vaccines (1 of 2) 1995 RSV Immunization Patients 60 + Years Old (1 - 1-dose 75+ series) 2020 Depression Screening 09/22/2022 Falls Risk Assessment 09/22/2022 Hepatitis C Screening 09/22/2022 Osteoporosis Screening (Bone Density Screening) 09/22/2022 Social Influencers of Health Screening 09/22/2022 COVID-19 Vaccine (2023-2 5 season) 2024 Influenza Vaccine (#1) 2024 HIB Vaccines Aged Out No longer eligi ble based on patient's age to complete this topic HPV Vaccines Aged Out No longer eligi ble based on patient's age to complete this topic Hepatitis A Vaccines Aged Out No long er eligible based on patient's age to complete this topic Hepatitis B Vaccines Aged Out No long er eligible based on patient's age to complete this topic IPV Vaccines Aged Out No longer eligi ble based on patient's age to complete this topic MMR Vaccines Aged Out No longer eligi ble based on patient's age to complete this topic Meningococcal ACWY Vaccine Aged Out N o longer eligible based on patient's age to complete this topic Meningococcal B Vacine Aged Out No lo nger eligible based on patient's age to complete this topic RSV Immunization Patients Un pj 20 months Aged Out No longer eligible b ased on patient's age to complete this topic Varicella Vaccines Aged Out No longer eligible based on patient's age to complete this topic
[2024-12-03 09:01] LABS: Estimated Average Glucose 120 mg/dL; Hemoglobin A1C 151.0268 umol/L; Hemoglobin A1c % 5.8 % (<6.0); Total Hemoglobin (HGBA1C) 3821.7371 umol/L
[2024-12-03 09:24] LABS: Alanine Aminotransferase 27 U/L (0-31); Albumin Level 4.4 g/dL (3.5-5.0); Alkaline Phosphatase 51 U/L (39-117); Anion Gap 16 (12-20); Aspartate Amino Transferase 23 U/L (5-31); Bilirubin Total 0.5 mg/dL (0.0-1.0); Blood Urea Nitrogen 19 mg/dL (9-16); Carbon Dioxide 29 mmol/L (22-29); Chloride 96 mmol/L (96-108); Cholesterol 233 mg/dL (<200); Estimated Glomerular Filt Rate 60; Glucose Random 114 mg/dL (60-115); HDL Cholesterol 77 mg/dL (>40); LDL Cholesterol Calculated 142 mg/dL (<100); Phosphorus 3.2 mg/dL (2.7-4.5); Potassium 3.6 mmol/L (3.3-5.1); Sodium 137 mmol/L (135-145); Total Protein 8.2 g/dL (6.5-8.0); Triglycerides 72 mg/dL (<150)
[2024-12-03 10:36] LABS: Parathyroid Hormone Intact 37.5 pg/mL (8.7-77.1)
== END 2024-12-03 08:17 | disposition home or self-care (01) ==
LOC: HO.LAB 08:16
PROVIDERS: PCP Internal Medicine; Visit Provider Internal Medicine
DX: E11.9 Type 2 diabetes mellitus without complications (principal); E78.00 Pure hypercholesterolemia, unspecified; E83.52 Hypercalcemia; E89.0 Postprocedural hypothyroidism; R00.0 Tachycardia, unspecified; R80.8 Other proteinuria
CPT/HCPCS: 36415; 80053; 80061; 82306; 83036; 83970; 84100

== ENCOUNTER 2025-01-07 08:10 | Day surgery (SDC) | payer MEDICARE, SELFPAY ==
[2025-01-03 11:34] VITALS: BMI 29.4
--- NOTE | 2025-01-03 14:37 | P.CONAN_ITS ---
Documented by User: Idalia Monteiro NP 01/03/25 14:38 HPI - Anesthesia Eval Consult details Narrative: 79yo F for Left Cataract Extraction IOL Insertion No previous cataract on record PMFSH Active Problems Active Problems: All Active Problems Skin lesion of scalp (Acute) Arthritis (Acute) Multiple sclerosis (Acute) Past Medical History Medical History Environmental and seasonal allergies Hyperthyroidism Diabetes mellitus Depression Chronic neurologic disease Osteoarthritis HTN (hypertension) Cataracts, bilateral Skin lesion of scalp Arthritis Multiple sclerosis Family History Family History Other Family history unknown Surgical History Surgical History Hx of colonoscopy (2018) Hx of varicose vein ligation History of total left knee replacement (TKR) History of excision of lesion (~10/04/24) Social History Social History Are you a primary hiv/aids care nurse to a significant other at home: No Do you presently have visiting nurse or other home services: No Unable to assess alcohol history related to: Unknown Patient Tobacco Use Status: Former Tobacco user Have you been hit, kicked, punched, or otherwise hurt by someone within the past year? If so, by whom?: No Are you DNR?: No Advance Directives: No Advance Directives Information Provided: Yes Recently lost weight without trying: No Nutrition Risks: No Nutritional Risk Meds Allergies Allergy/AdvReac Type Severity Reaction Status Date / Time NATHALIE Inhibitors Allergy Mild Cough Verified 01/07/25 09:30 minerals [Enviro Stress] Allergy Unknown Unknown Verified 01/07/25 09:30 vitamin B complex and C Allergy Unknown Unknown Verified 01/07/25 09:30 [Enviro Stress] vitamin E (d-alpha Allergy Unknown Unknown Verified 01/07/25 09:30 tocopherol) [Enviro Stress] albumin human AdvReac Mild elevated Verified 01/07/25 09:30 [From Rebif (with albumin)] transaminase interferon beta-1a AdvReac Mild elevated Verified 01/07/25 09:30 [From Rebif (with albumin)] transaminase Home Medications ?Medication ?Instructions ?Recorded ?Confirmed ?Last Taken ?Type levothyroxine 88 mcg capsule 88 mcg PO DAILY 09/24/24 01/03/25 01/07/25 History losartan 100 1 tab PO DAILY 09/24/24 01/03/25 Unknown History mg-hydrochlorothiazide 12.5 mg tablet acetaminophen 500 mg capsule 1,000 mg PO Q6H PRN Pain 01/03/25 01/03/25 Unknown History cholecalciferol (vitamin D3) 25 25 mcg PO DAILY 01/03/25 01/03/25 Unknown History mcg (1,000 unit) capsule (Vitamin D3) cyanocobalamin (vitamin B-12) 1,000 mcg PO DAILY 01/03/25 01/03/25 Unknown History 1,000 mcg tablet (Vitamin B-12) dimethyl fumarate 240 mg 240 mg PO BID 01/03/25 01/03/25 01/07/25 History capsule,delayed release (Tecfidera) omeprazole 20 mg tablet,delayed 20 mg PO DAILY 01/03/25 01/03/25 Unknown History release Exam Height,Weight and Vital Signs: Height 5 ft 3 in Weight 75.296 kg Assessment and Plan Assessment Anesthesia Assessment: Chart Reviewed Documented by User: Shawna Jesus MD 01/07/25 09:40 PMFSH Past Medical History Medical History Environmental and seasonal allergies Hyperthyroidism Diabetes mellitus Depression Chronic neurologic disease Osteoarthritis HTN (hypertension) Cataracts, bilateral Skin lesion of scalp Arthritis Multiple sclerosis Family History Family History Other Family history unknown Family history of problems with anesthesia: No Surgical History Surgical History Hx of colonoscopy (2018) Hx of varicose vein ligation History of total left knee replacement (TKR) History of excision of lesion (~10/04/24) History of Problems with Anesthesia: No Social History Social History Are you a primary hiv/aids care nurse to a significant other at home: No Do you presently have visiting nurse or other home services: No Unable to assess alcohol history related to: Unknown Patient Tobacco Use Status: Former Tobacco user Have you been hit, kicked, punched, or otherwise hurt by someone within the past year? If so, by whom?: No Are you DNR?: No Advance Directives: No Advance Directives Information Provided: Yes Recently lost weight without trying: No Nutrition Risks: No Nutritional Risk Meds Allergies Allergy/AdvReac Type Severity Reaction Status Date / Time NATHALIE Inhibitors Allergy Mild Cough Verified 01/07/25 09:30 minerals [Enviro Stress] Allergy Unknown Unknown Verified 01/07/25 09:30 vitamin B complex and C Allergy Unknown Unknown Verified 01/07/25 09:30 [Enviro Stress] vitamin E (d-alpha Allergy Unknown Unknown Verified 01/07/25 09:30 tocopherol) [Enviro Stress] albumin human AdvReac Mild elevated Verified 01/07/25 09:30 [From Rebif (with albumin)] transaminase interferon beta-1a AdvReac Mild elevated Verified 01/07/25 09:30 [From Rebif (with albumin)] transaminase Home Medications ?Medication ?Instructions ?Recorded ?Confirmed ?Last Taken ?Type levothyroxine 88 mcg capsule 88 mcg PO DAILY 09/24/24 01/03/25 01/07/25 History losartan 100 1 tab PO DAILY 09/24/24 01/03/25 Unknown History mg-hydrochlorothiazide 12.5 mg tablet acetaminophen 500 mg capsule 1,000 mg PO Q6H PRN Pain 01/03/25 01/03/25 Unknown History cholecalciferol (vitamin D3) 25 25 mcg PO DAILY 01/03/25 01/03/25 Unknown History mcg (1,000 unit) capsule (Vitamin D3) cyanocobalamin (vitamin B-12) 1,000 mcg PO DAILY 01/03/25 01/03/25 Unknown History 1,000 mcg tablet (Vitamin B-12) dimethyl fumarate 240 mg 240 mg PO BID 01/03/25 01/03/25 01/07/25 History capsule,delayed release (Tecfidera) omeprazole 20 mg tablet,delayed 20 mg PO DAILY 01/03/25 01/03/25 Unknown History release Exam Airway Mallampati Class: II TM Dist: >3cm Neck ROM: Full Heart: rrr Lungs: cta Assessment and Plan Assessment Anesthesia Assessment: Anesthesia Plan Discussed Final Anesthetic Review Family History of Problems with Anesthesia: No History of Problems with Anesthesia: No NPO: Yes ASA Class: III Final Preanesthetic Review: No Changes in Pt Med Stat, Meds/Allgs Chart Reviewed, Consent Obtained/Reviewed and Anes Risks/Benef Reviewed Patient Risk: Intermediate Procedure Risk: Low Anesthetic Plan Anesthetic Plan: MAC: Disposition: Standard PACU
[2025-01-07] MEDS: Lactated Ringers 500 ML 50 ML IV (09:13)
[2025-01-07] MEDS: Phenylephrine HCL 2.5% Oph SoL 2 ML BOTTLE 1 DROP EYE-LEFT ×3 (09:13→09:22)
[2025-01-07] MEDS: Tetracaine HCl/PF 0.5% Oph Sol 4 ML DROPS 1 DROP EYE-LEFT (09:13)
[2025-01-07] MEDS: Cyclopentolate 1 % Ophth Sol 2 ML DRPBTL 1 DROP EYE-LEFT ×3 (09:13→09:22)
[2025-01-07] MEDS: Tropicamide 1 % Ophth Sol 3 ML BTL 1 DROP EYE-LEFT ×3 (09:14→09:22)
[2025-01-07] MEDS: Ketorolac Tromethamine 0.5% Op 5 ML DROPS 1 DROP EYE-LEFT ×3 (09:14→09:21)
[2025-01-07 09:26] VITALS: BP 118/67; PULSE 93; RESP 18; TEMP 36.7; O2SAT 97
--- NOTE | 2025-01-07 10:00 | MHC.SHP ---
Pre-Procedural Eval Section A - 24 Hr Update-Section A only Date of Service: 01/07/25 The patient is an INPATIENT: No Changes since office visit: No Cold of Flu in the past 2 weeks, No New Medical Problems, No Changes in Medication and No Patient answered all questions The patient has been examined within 24 hours of the surgical procedure. The History & Physical has been completed within 30 days and I have reviewed it.: Yes Section B - Complete if H&P > 30 days Chief Complaint: Age-related nuclear cataract, left eye Allergies: Allergies Allergy/AdvReac Type Severity Reaction Status Date / Time NATHALIE Inhibitors Allergy Mild Cough Verified 01/07/25 09:30 minerals [Enviro Stress] Allergy Unknown Unknown Verified 01/07/25 09:30 vitamin B complex and C Allergy Unknown Unknown Verified 01/07/25 09:30 [Enviro Stress] vitamin E (d-alpha Allergy Unknown Unknown Verified 01/07/25 09:30 tocopherol) [Enviro Stress] albumin human AdvReac Mild elevated Verified 01/07/25 09:30 [From Rebif (with albumin)] transaminase interferon beta-1a AdvReac Mild elevated Verified 01/07/25 09:30 [From Rebif (with albumin)] transaminase Plan Diagnosis/Plan: Unchanged I have reviewed the history and physical and performed a pertinent physical examination on my patient. No changes have occurred unless specified. Time Spent With Patient Time: Total time managing care of this patient today ____ minutes.
--- NOTE | 2025-01-07 10:00 | HO.PNOPHT ---
Ophthalmology Procedure Procedure Date of Service: 01/07/25 Ophthalmology Viscoelastic: Healon Duet Dual Pack Pro Ophthalmology Lenses: IOL Acrysof MP - [id number] (18) Procedure Notes: PREOPERATIVE DIAGNOSIS: Decreased visual acuity left eye secondary to cataract POSTOPERATIVE DIAGNOSIS: Same PROCEDURE: Left cataract extraction with intraocular lens insertion SURGEON: Elias Michelle M.D. ANESTHESIA: Topical/MAC ESTIMATED BLOOD LOSS: None COMPLICATIONS: None After obtaining informed consent, the patient was brought to the operation room suite and placed in the supine position. After adequate sedation per anesthesia, topical drops of Tetracaine were given to the left eye. The eye was then prepped and draped in the usual sterile fashion. The operating room microscope was then positioned over the operative eye and a lid speculum placed. A paracentesis was created. Viscoelastic was then instilled into the anterior chamber. A three plane incision was then created temporally, utilizing a 2.85 mm keratome. Capsulotomy forceps were then utilized to create a circular tear capsulotomy. Hydrodissection and hydrodelineation were carried out until adequate mobilization of the nucleus occurred. Phacoemulsification was then utilized to remove the dense central nucleus followed by removal of the cortical material utilizing the automated aspiration irrigation unit. Viscoat elastic was instilled into the posterior capsular bag followed by placement of a posterior chamber intraocular lens without difficulty. The residual Viscoat elastic was then removed utilizing the automated IA machine. The wound was check and found to be watertight. The patient tolerated the procedure well and the lid speculum was removed. Intracameral injection of Vigamox 0.1 mL followed by a subtenon injection of Kenalog-40 0.2 mL were administered. The patient will be seen in the a.m.
[2025-01-07 10:20] VITALS: BP 118/60; PULSE 70; RESP 18; TEMP 36.1; O2SAT 98
[2025-01-07 10:35] VITALS: BP 125/63; PULSE 78; RESP 16; TEMP 36.1; O2SAT 98
== END 2025-01-07 10:37 | disposition home or self-care (01) ==
PROVIDERS: PCP Internal Medicine; Visit Provider Ophthalmology
PROC: (CPT 66985; principal; 2025-01-07 10:30)
DX: H25.12 Age-related nuclear cataract, left eye (principal); H52.4 Presbyopia; H11.153 Pinguecula, bilateral; G35 Multiple sclerosis; I10 Essential (primary) hypertension; E07.9 Disorder of thyroid, unspecified; J30.2 Other seasonal allergic rhinitis; E11.9 Type 2 diabetes mellitus without complications; Z79.899 Other long term (current) drug therapy; Z87.891 Personal history of nicotine dependence
CPT/HCPCS: 66984; J2250; J3301; V2630

== ENCOUNTER 2025-01-21 07:16 | Day surgery (SDC) | payer MEDICARE, SELFPAY ==
[2025-01-03 11:35] VITALS: BMI 29.4
[2025-01-21 07:33] VITALS: BP 128/70; PULSE 78; RESP 15; TEMP 36.6; O2SAT 98
[2025-01-21] MEDS: Tetracaine HCl/PF 0.5% Oph Sol 4 ML DROPS 1 DROP EYE-RIGHT (07:35)
[2025-01-21] MEDS: Cyclopentolate 1 % Ophth Sol 2 ML DRPBTL 1 DROP EYE-RIGHT ×3 (07:37→07:55)
[2025-01-21] MEDS: Tropicamide 1 % Ophth Sol 3 ML BTL 1 DROP EYE-RIGHT ×3 (07:40→07:56)
[2025-01-21] MEDS: Ketorolac Tromethamine 0.5% Op 5 ML DROPS 1 DROP EYE-RIGHT ×3 (07:42→07:58)
[2025-01-21] MEDS: Phenylephrine HCL 2.5% Oph SoL 2 ML BOTTLE 1 DROP EYE-RIGHT ×3 (07:43→07:59)
--- NOTE | 2025-01-21 07:45 | P.CONAN_ITS ---
Documented by User: Idalia Monteiro NP 01/17/25 14:35 HPI - Anesthesia Eval Consult details Narrative: 79yo F for Right Cataract Extraction IOL Insertion Left eye 01/07/25: Midaz 1 PMFSH Active Problems Active Problems: All Active Problems Skin lesion of scalp (Acute) Arthritis (Acute) Multiple sclerosis (Acute) Past Medical History Medical History Environmental and seasonal allergies Hyperthyroidism Diabetes mellitus Depression Chronic neurologic disease Osteoarthritis HTN (hypertension) Cataracts, bilateral Skin lesion of scalp Arthritis Multiple sclerosis Family History Family History Other Family history unknown Family history of problems with anesthesia: No Surgical History Surgical History Hx of left cataract extraction (01/07/25) Hx of colonoscopy (2018) Hx of varicose vein ligation History of total left knee replacement (TKR) History of excision of lesion (~10/04/24) History of Problems with Anesthesia: No Social History Social History Are you a primary patient care technician instructor to a significant other at home: No Do you presently have visiting nurse or other home services: No Unable to assess alcohol history related to: Unknown Patient Tobacco Use Status: Former Tobacco user Advance Directives: No Advance Directives Information Provided: Yes Meds Allergies Allergy/AdvReac Type Severity Reaction Status Date / Time NATHALIE Inhibitors Allergy Mild Cough Verified 01/21/25 07:44 minerals [Enviro Stress] Allergy Unknown Unknown Verified 01/21/25 07:44 vitamin B complex and C Allergy Unknown Unknown Verified 01/21/25 07:44 [Enviro Stress] vitamin E (d-alpha Allergy Unknown Unknown Verified 01/21/25 07:44 tocopherol) [Enviro Stress] albumin human AdvReac Mild elevated Verified 01/21/25 07:44 [From Rebif (with albumin)] transaminase interferon beta-1a AdvReac Mild elevated Verified 01/21/25 07:44 [From Rebif (with albumin)] transaminase Home Medications ?Medication ?Instructions ?Recorded ?Confirmed ?Last Taken ?Type levothyroxine 88 mcg capsule 88 mcg PO DAILY 09/24/24 01/03/25 01/21/25 06:20 History losartan 100 1 tab PO DAILY 09/24/24 01/03/25 Unknown History mg-hydrochlorothiazide 12.5 mg tablet acetaminophen 500 mg capsule 1,000 mg PO Q6H PRN Pain 01/03/25 01/03/25 Unknown History cholecalciferol (vitamin D3) 25 25 mcg PO DAILY 01/03/25 01/03/25 Unknown History mcg (1,000 unit) capsule (Vitamin D3) cyanocobalamin (vitamin B-12) 1,000 mcg PO DAILY 01/03/25 01/03/25 Unknown History 1,000 mcg tablet (Vitamin B-12) dimethyl fumarate 240 mg 240 mg PO BID 01/03/25 01/03/25 01/21/25 06:20 History capsule,delayed release (Tecfidera) omeprazole 20 mg tablet,delayed 20 mg PO DAILY 01/03/25 01/03/25 Unknown History release Exam Height,Weight and Vital Signs: Height 5 ft 3 in Weight 75.296 kg Assessment and Plan Assessment Anesthesia Assessment: Chart Reviewed Final Anesthetic Review Family History of Problems with Anesthesia: No History of Problems with Anesthesia: No Documented by User: Joanne Simons DO 01/21/25 07:48 PMFSH Past Medical History Medical History Environmental and seasonal allergies Hyperthyroidism Diabetes mellitus Depression Chronic neurologic disease Osteoarthritis HTN (hypertension) Cataracts, bilateral Skin lesion of scalp Arthritis Multiple sclerosis Family History Family History Other Family history unknown Family history of problems with anesthesia: No Surgical History Surgical History Hx of left cataract extraction (01/07/25) Hx of colonoscopy (2018) Hx of varicose vein ligation History of total left knee replacement (TKR) History of excision of lesion (~10/04/24) History of Problems with Anesthesia: No Social History Social History Are you a primary patient care technician instructor to a significant other at home: No Do you presently have visiting nurse or other home services: No Unable to assess alcohol history related to: Unknown Patient Tobacco Use Status: Former Tobacco user Advance Directives: No Advance Directives Information Provided: Yes Meds Allergies Allergy/AdvReac Type Severity Reaction Status Date / Time NATHALIE Inhibitors Allergy Mild Cough Verified 01/21/25 07:44 minerals [Enviro Stress] Allergy Unknown Unknown Verified 01/21/25 07:44 vitamin B complex and C Allergy Unknown Unknown Verified 01/21/25 07:44 [Enviro Stress] vitamin E (d-alpha Allergy Unknown Unknown Verified 01/21/25 07:44 tocopherol) [Enviro Stress] albumin human AdvReac Mild elevated Verified 01/21/25 07:44 [From Rebif (with albumin)] transaminase interferon beta-1a AdvReac Mild elevated Verified 01/21/25 07:44 [From Rebif (with albumin)] transaminase Home Medications ?Medication ?Instructions ?Recorded ?Confirmed ?Last Taken ?Type levothyroxine 88 mcg capsule 88 mcg PO DAILY 09/24/24 01/03/25 01/21/25 06:20 History losartan 100 1 tab PO DAILY 09/24/24 01/03/25 Unknown History mg-hydrochlorothiazide 12.5 mg tablet acetaminophen 500 mg capsule 1,000 mg PO Q6H PRN Pain 01/03/25 01/03/25 Unknown History cholecalciferol (vitamin D3) 25 25 mcg PO DAILY 01/03/25 01/03/25 Unknown History mcg (1,000 unit) capsule (Vitamin D3) cyanocobalamin (vitamin B-12) 1,000 mcg PO DAILY 01/03/25 01/03/25 Unknown History 1,000 mcg tablet (Vitamin B-12) dimethyl fumarate 240 mg 240 mg PO BID 01/03/25 01/03/25 01/21/25 06:20 History capsule,delayed release (Tecfidera) omeprazole 20 mg tablet,delayed 20 mg PO DAILY 01/03/25 01/03/25 Unknown History release Exam Exam Date and Time: 01/21/25 0739 Height,Weight and Vital Signs: Height 5 ft 3 in Weight 75.296 kg Vital Signs Temperature 97.8 F 01/21/25 07:33 Pulse Rate 78 01/21/25 07:33 Respiratory Rate 15 01/21/25 07:33 Blood Pressure 128/70 01/21/25 07:33 Pulse Oximetry 98 01/21/25 07:33 Oxygen Delivery Method Room Air 01/21/25 07:33 Temperature 97.8 F 01/21/25 07:33 Pulse Rate 78 01/21/25 07:33 Respiratory Rate 15 01/21/25 07:33 Blood Pressure 128/70 01/21/25 07:33 Pulse Oximetry 98 01/21/25 07:33 Oxygen Delivery Method Room Air 01/21/25 07:33 Airway Mallampati Class: I TM Dist: >3cm Neck ROM: Full Loose/Missing/Broken Teeth: No (patient denies any loose or broken teeth) Heart: S1S2 Lungs: CTAB Assessment and Plan Assessment Anesthesia Assessment: Anesthesia Plan Discussed and Chart Reviewed Final Anesthetic Review Family History of Problems with Anesthesia: No History of Problems with Anesthesia: No NPO: Yes ASA Class: III Final Preanesthetic Review: No Changes in Pt Med Stat, Meds/Allgs Chart Reviewed, Consent Obtained/Reviewed and Anes Risks/Benef Reviewed Patient Risk: Intermediate Procedure Risk: Low Anesthetic Plan Anesthetic Plan: MAC: and Agree w/ Assess. and Plan Disposition: Standard PACU
[2025-01-21] MEDS: Lactated Ringers 500 ML 50 ML IV (07:58)
--- NOTE | 2025-01-21 08:27 | P.PCNO_ITS ---
Ophthalmology Procedure Procedure Date of Service: 01/21/25 Ophthalmology Viscoelastic: Healon Duet Dual Pack Pro Ophthalmology Lenses: IOL Acrysof MP - MA60AC (18.5) Procedure Notes: PREOPERATIVE DIAGNOSIS: Decreased visual acuity right eye secondary to cataract POSTOPERATIVE DIAGNOSIS: Same PROCEDURE: Right cataract extraction with intraocular lens insertion SURGEON: Elias Michelle M.D. ANESTHESIA: Topical/MAC ESTIMATED BLOOD LOSS: None COMPLICATIONS: None After obtaining informed consent, the patient was brought to the operating room suite and placed in the supine position. After adequate sedation per anesthesia, topical drops of Tetracaine were given to the right eye. The eye was then prepped and draped in the usual sterile fashion. The operating room microscope was then positioned over the operative eye and a lid speculum placed. A paracentesis was created. Viscoelastic was then instilled into the anterior chamber. A three plane incision was then created temporally, utilizing a 2.85 mm keratome. Capsulotomy forceps were then utilized to create a circular tear capsulotomy. Hydrodissection and hydrodelineation were carried out until adequate mobilization of the nucleus occurred. Phacoemulsification was then utilized to remove the dense central nu cleus followed by removal of the cortical material utilizing the automated aspiration irrigation unit. Viscoelastic was instilled into the posterior capsular bag followed by placement of a posterior chamber intraocular lens without difficulty. The residual Viscoelastic was then removed utilizing the automated IA machine. The wound was checked and found to be watertight. The patient tolerated the procedure well and the lid speculum was removed. Intracameral injection of Vigamox 0.1 mL followed by a subtenon injection of Kenalog-40 0.2 mL were administered. The patient will be seen in the a.m.
--- NOTE | 2025-01-21 08:27 | MHC.SHP ---
Pre-Procedural Eval Section A - 24 Hr Update-Section A only Date of Service: 01/21/25 The patient is an INPATIENT: No Changes since office visit: No Cold of Flu in the past 2 weeks, No New Medical Problems, No Changes in Medication and No Patient answered all questions The patient has been examined within 24 hours of the surgical procedure. The History & Physical has been completed within 30 days and I have reviewed it.: Yes Section B - Complete if H&P > 30 days Chief Complaint: Age-related nuclear cataract, right eye Allergies: Allergies Allergy/AdvReac Type Severity Reaction Status Date / Time NATHALIE Inhibitors Allergy Mild Cough Verified 01/21/25 07:44 minerals [Enviro Stress] Allergy Unknown Unknown Verified 01/21/25 07:44 vitamin B complex and C Allergy Unknown Unknown Verified 01/21/25 07:44 [Enviro Stress] vitamin E (d-alpha Allergy Unknown Unknown Verified 01/21/25 07:44 tocopherol) [Enviro Stress] albumin human AdvReac Mild elevated Verified 01/21/25 07:44 [From Rebif (with albumin)] transaminase interferon beta-1a AdvReac Mild elevated Verified 01/21/25 07:44 [From Rebif (with albumin)] transaminase Plan Diagnosis/Plan: Unchanged I have reviewed the history and physical and performed a pertinent physical examination on my patient. No changes have occurred unless specified. Time Spent With Patient Time: Total time managing care of this patient today ____ minutes.
[2025-01-21 08:51] VITALS: BP 124/64; PULSE 66; RESP 16; TEMP 36.3; O2SAT 98
[2025-01-21 09:06] VITALS: BP 120/80; PULSE 65; RESP 16; TEMP 36.2; O2SAT 98
== END 2025-01-21 09:06 | disposition home or self-care (01) ==
PROVIDERS: PCP Internal Medicine; Visit Provider Ophthalmology
PROC: (CPT 66985; principal; 2025-01-21 08:30)
DX: H25.11 Age-related nuclear cataract, right eye (principal); H52.4 Presbyopia; H11.153 Pinguecula, bilateral; G35 Multiple sclerosis; I10 Essential (primary) hypertension; E05.20 Thyrotoxicosis with toxic multinodular goiter without thyrotoxic crisis or storm; E11.9 Type 2 diabetes mellitus without complications; J30.2 Other seasonal allergic rhinitis; Z87.891 Personal history of nicotine dependence; Z79.899 Other long term (current) drug therapy
CPT/HCPCS: 66984; J2250; J3301; V2630

== ENCOUNTER 2025-02-26 08:44 | Outpatient (REF) | payer MEDICARE, SELFPAY ==
--- NOTE | ~2025-02-26 | XR_ITS ---
EXAMINATION: XR SHOULDER, RIGHT CLINICAL INFORMATION: RIGHT SHOULDER OSTEOARTHRITIS COMPARISON: None available. TECHNIQUE: AP external rotation, Grashey, scapular Y, and axillary views of the right shoulder. FINDINGS: Exostosis in the inferior humeral head. Sclerosis along the articular surfaces of the glenoid and humerus with volume loss of the humeral head. Sclerosis in the articular surfaces acromioclavicular joint. Joint space narrowing. Complications in the aortic arch. Multilevel thoracic spondylosis.. XR/XR shoulder RT min 2V IMPRESSION: Moderate to severe osteoarthrosis, right shoulder. Electronically signed by: Sathya Mathis MD 02/26/2025 09:33 AM EDT
--- OUTSIDE RECORDS SUMMARY | 2025-02-26 09:12 | XMS_ITS | Clinical Summary ---
Author Organization [facility] Address [address] [place] [address] Care Team Providers Care Beef Pluck Trimmer Name Role Phone Unavailable Primary Care Provider [...] Comments DTaP,Tdap,and Td Vaccines (1 - Tdap) 1964 Pneumococcal Vaccine: 50+ Ye ars (1 of 1 - PCV) 1995 Zoster Vaccines (1 of 2) 1995 RSV Immunization Adult Patie nts (1 - 1-dose 75+ series) 2020 Depression Screening 09/22/2022 Falls Risk Assessment 09/22/2022 Hepatitis C Screening 09/22/2022 Osteoporosis Screening (Bone Density Screening) 09/22/2022 Social Influencers of Health Screening 09/22/2022 COVID-19 Vaccine (2023-2 5 season) 2024 Influenza Vaccine (Season Ended) 2025 HIB Vaccines Aged Out No longer eligi [...] age to complete this topic Meningococcal B Vaccine Aged Out No l onger eligible based on patient's age to complete this topic RSV Immunization Patients Un pj 20 months Aged Out No longer eligible b ased on patient's age to complete this topic Varicella Vaccines Aged Out No longer eligible based on patient's age to complete this topic
== END 2025-02-26 08:45 | disposition home or self-care (01) ==
LOC: HO.LAB 08:44
PROVIDERS: PCP Internal Medicine; Visit Provider Internal Medicine
DX: M19.011 Primary osteoarthritis, right shoulder (principal)
CPT/HCPCS: 73030

== ENCOUNTER → 2025-02-26 08:54 | Outpatient (BNV) | payer MEDICARE, SELFPAY | PROVIDERS: PCP Internal Medicine; Visit Provider Radiology Diagnostic Radiology | DX: M19.011 Primary osteoarthritis, right shoulder (principal) | CPT/HCPCS: 73030 ==

== ENCOUNTER 2025-06-11 09:57 | Outpatient (AMB) | payer MEDICARE, SELFPAY ==
--- OUTSIDE RECORDS SUMMARY | 2025-06-11 11:07 | XMS_ITS | Patient Health Record ---
Author Organization [facility] Address [address] [place] [address] Care Team Providers Care Senior Design Engineering Specialist Name Role Phone Lizet Coppola Primary Care Provider Unavailab Sean Rueda Jr Unavailable Reason For Referral No Information Medications Medication SIG (Take, Route, Frequency, Duration) Notes Start Date End Date Status Tecfidera 240 MG 1 capsule Orally Twi ce a day for 30 day(s) Active Vitamin B12 1000 MCG 1 tablet Orally Onc e a day Active Vitamin D2 400 UNIT 1 tablet Orally Once a day Active Levothyroxine Sodium 88 MCG 1 tablet on an empty stomach in the morning Orally Once a day Active Losartan Potassium-HCTZ 100-25 MG 1 tablet Orally Once a day Active amLODIPine Besylate 5 MG 1 tablet Orally Once a day Active Tylenol Extra Strength 500 MG 2 tablet as needed Orally twice a day Not-Taking Immunizations Vaccine Route Administration Date Status Comme nts Flu vaccine no Preserv 3 and > Unknown 07/01/2017 Admin istered Influenza Unknown 06/24/2019 Administered Social History Tobacco Use: Social History Observation Description Date Details (start date - stop date) Former Smoker NA - NA Tobacco Use/Smoking Question Answer Notes Patient is a former smoker When did you stop smoking? 40 years ago How long has it been since you last smoked? > 10 years Alcohol Screen Question Answer Notes Did you have a drink containing alcohol in the p ast year? No Points 0 Interpretation Negative Problems Problem Type SNOMED Code ICD Code Onset Dates Problem Status W/U Status Risk Notes Problem 106554369 Colon cancer screening (Z12.11) Active confirmed Problem 711176676 Elevated liver function tests (R94.5) Active confirmed Plan Of Treatment Pending Test Test Name Order Date LIVER PROFILE 03/19/2020 IRON + IBC (FE) 03/19/2020 FERRITIN 03/19/2020 MITOCHONDRIAL AB 03/19/2020 SMOOTH MUSCLE ANTIBODIES 03/19/2020 FLUOR. ANTINUCLEAR AB SCREEN (NICOLA) 02/22 Future Test Test Name Order Date COLONOSCOPY 07/29/2017 Insurance Providers Payer Name Payer Address Payer Phone Subscriber Number Group Number Insured Name Patient Relationship to Insured Coverage Start Date Coverage End Date MEDICARE OF [place] [address] [place] [address] [id number] JAYE CLAY Self - patient is the insured [employer] [address] [place] [id number] JAYE CLAY Self - patient is the insured Medical (General) History Medical History History ICD Code hypertension osteoarthritis hypothyroidism multiple sclerosis pre diabetic screening colonoscopy 11/28/17 one hyperplastic polyp, no further screening recommended based on age. Surgical History Surgery Date(Month/Year) left knee replacement 08/2016 right knee replacement 05/2017 carpal tunnel release vericose veins
--- OUTSIDE RECORDS SUMMARY | 2025-06-11 11:07 | XMS_ITS | Clinical Summary ---
Author Organization [facility] Address [address] [place] [address] Care Team Providers Care Live Study Manager Name Role Phone Unavailable Primary Care Provider [...] nts (1 - 1-dose 75+ series) 2020 Falls Risk Assessment 09/22/2022 Hepatitis C Screening 09/22/2022 Osteoporosis Screening (Bone Density Screening) 09/22/2022 Social Influencers of Health Screening 09/22/2022 COVID-19 Vaccine (1 - 2023-2 5 season) 2024 Depression Screening 10/24/2024 Influenza Vaccine (#1) 2025 HIB Vaccines Aged Out No longer [...]
== END 2025-06-11 10:47 | disposition home or self-care (01) ==
LOC: HO.HMGAL 09:57
PROVIDERS: PCP Internal Medicine; Visit Provider Registered Nurse Emergency
DX: J30.89 Other allergic rhinitis (principal)
CPT/HCPCS: 95117; 95165

== ENCOUNTER 2025-07-08 10:11 | Outpatient (AMB) | payer MEDICARE, SELFPAY ==
--- OUTSIDE RECORDS SUMMARY | 2025-07-08 12:50 | XMS_ITS | Patient Health Record ---
Author Organization [facility] Address [address] [place] [address] Care Team Providers Care Laundry Tech Name Role Phone Lizet Coppola Primary Care Provider Unavailab Sean Rueda Jr Unavailable [phone] Reason For Referral No Information Medications Medication [...] Problem Status W/U Status Risk Notes Problem [id number] Colon cancer screening (Z12.11) Active confirmed Problem [id number] Elevated liver function tests (R94.5) Active confirmed [...] OF [place] [address] [place] [address] [id number] JAYE CLAY Self - patient is the insured [employer] [address] [place] [phone] [id number] JAYE CLAY Self - patient is the insured Medical (General) History Medical History History ICD Code hypertension osteoarthritis hypothyroidism multiple sclerosis pre diabetic screening colonoscopy 11/28/17 one hyperplastic polyp, no further screening recommended based on age. Surgical History Surgery Date(Month/Year) left knee replacement 08/2016 right knee replacement 05/2017 carpal tunnel release vericose veins
--- OUTSIDE RECORDS SUMMARY | 2025-07-08 12:50 | XMS_ITS | Clinical Summary ---
Author Organization [facility] Address [address] [place] [address] Care Team Providers Care Digital Hardware Design Engineer Name Role Phone Unavailable Primary Care Provider [...] 09/22/2022 Social Influencers of Health Screening 09/22/2022 Depression Screening 10/24/2024 COVID-19 Vaccine ( - 2023-2 5 season) 2025 Influenza Vaccine (#1) 2025 HIB Vaccines Aged [...]
== END 2025-07-08 10:12 | disposition home or self-care (01) ==
LOC: HO.HMGAL 10:11
PROVIDERS: PCP Internal Medicine; Visit Provider Registered Nurse Emergency
DX: J30.89 Other allergic rhinitis (principal)
CPT/HCPCS: 95117; 95165

== ENCOUNTER 2025-08-12 10:25 | Outpatient (AMB) | payer MEDICARE, SELFPAY | END 2025-08-12 10:26 | disposition home or self-care (01) | LOC: HO.HMGAL 10:25 | PROVIDERS: PCP Internal Medicine; Visit Provider Registered Nurse Emergency | DX: J30.89 Other allergic rhinitis (principal) | CPT/HCPCS: 95117; 95165 ==

== ENCOUNTER 2025-08-19 08:22 | Outpatient (REF) | payer MEDICARE, SELFPAY ==
--- OUTSIDE RECORDS SUMMARY | 2025-08-19 08:39 | XMS_ITS | Clinical Summary ---
Author Organization [facility] Address [address] [place] [address] Care Team Providers Care Senior Strategy Analyst Name Role Phone Unavailable Primary Care Provider [...]
--- OUTSIDE RECORDS SUMMARY | 2025-08-19 08:39 | XMS_ITS | Patient Health Record ---
Author Organization [facility] Address [address] [place] [address] Care Team Providers Care Roulette Dealer Name Role Phone Lizet Coppola Primary Care Provider UnavailSean Delcid Jr Unavailable Reason For Referral No Information Medications Medication SIG (Take, Route, Frequency, Duration) Notes Start Date End Date Status Tecfidera 240 MG 1 capsule Orally Twi ce a day; Duration: 30 day(s) Active Vitamin B12 1000 MCG [...] Problem Status W/U Status Risk Notes Problem Colon cancer screening (348099761) Colon cancer screening (Z12.11) Active confirmed Problem Elevated liver enzymes level (740989851) Elevated liver function tests (R94.5) Active confirmed [...] OF [place] [address] [place] [address] [id number] JAYE CLAY Self - patient is the insured [employer] [address] [place] [id number] JAYE CLAY Self - patient is the insured Medical (General) History Medical History History ICD Code hypertension osteoarthritis hypothyroidism multiple sclerosis pre diabetic screening colonoscopy 11/28/17 one hyperplastic polyp, no further screening recommended based on age. Surgical History Surgery Date(Month/Year) left knee replacement 08/2016 right knee replacement 05/2017 carpal tunnel release vericose veins
[2025-08-19 09:11] LABS: Hemoglobin A1C 134.0181 umol/L
[2025-08-19 09:22] LABS: Alanine Aminotransferase 37 U/L (0-31); Albumin Level 4.6 g/dL (3.5-5.0); Alkaline Phosphatase 49 U/L (39-117); Anion Gap 14 (12-20); Aspartate Amino Transferase 28 U/L (5-31); Blood Urea Nitrogen 17 mg/dL (9-16); Calcium 9.4 mg/dL (8.4-10.2); Carbon Dioxide 30 mmol/L (22-29); Chloride 93 mmol/L (96-108); Estimated Glomerular Filt Rate > 60; Potassium 3.6 mmol/L (3.3-5.1); Sodium 133 mmol/L (135-145); Total Protein 7.6 g/dL (6.5-8.0)
[2025-08-19 09:33] LABS: Microalbum/Creatinine Ratio Ur 9.6 ug/mg cr (<30)
[2025-08-19 09:38] LABS: Thyroid Stimulating Hormone 6.53 uIU/mL (0.32-4.0)
== END 2025-08-19 08:23 | disposition home or self-care (01) ==
LOC: HO.LAB 08:22
PROVIDERS: PCP Internal Medicine; Visit Provider Internal Medicine
DX: E89.0 Postprocedural hypothyroidism (principal); E83.52 Hypercalcemia; E11.9 Type 2 diabetes mellitus without complications; R80.8 Other proteinuria
CPT/HCPCS: 36415; 80053; 82043; 82570; 83036; 84443

== ENCOUNTER 2025-09-09 10:24 | Outpatient (AMB) | payer MEDICARE, SELFPAY | END 2025-09-09 10:24 | disposition home or self-care (01) | LOC: HO.HMGAL 10:24 | PROVIDERS: PCP Internal Medicine; Visit Provider Registered Nurse Emergency | DX: J30.89 Other allergic rhinitis (principal) | CPT/HCPCS: 95117; 95165 ==

== ENCOUNTER 2025-09-24 08:22 | Outpatient (AMB) | payer MEDICARE, SELFPAY ==
--- OUTSIDE RECORDS SUMMARY | 2025-09-24 08:25 | XMS_ITS | Clinical Summary ---
Author Organization [facility] Address [address] [place] [address] Care Team Providers Care Timber Robber Name Role Phone Unavailable Primary Care Provider [...] Screening 09/22/2022 Depression Screening 10/24/2024 COVID-19 Vaccine (2024-2 6 season) 2025 Influenza Vaccine (#1) 2025 HIB [...]
--- NOTE | 2025-09-24 08:33 | A.OFFVIS_ITS ---
Intake Visit Reasons: 6 month f/u Allergies NATHALIE Inhibitors Allergy (Mild, Verified 09/24/25 08:43) Cough minerals (Enviro Stress) Allergy (Unknown, Verified 09/24/25 08:43) Unknown vitamin B complex and C (Enviro Stress) Allergy (Unknown, Verified 09/24/25 08:43) Unknown vitamin E (d-alpha tocopherol) (Enviro Stress) Allergy (Unknown, Verified 09/24/25 08:43) Unknown albumin human (From Rebif (with albumin)) Adverse Reaction (Mild, Verified 09/24/25 08:43) elevated transaminase interferon beta-1a (From Rebif (with albumin)) Adverse Reaction (Mild, Verified 09/24/25 08:43) elevated transaminase Medication List - Last Reconciled 09/24/25 by Nalini Holden CNP acetaminophen 1,000 mg PO Q6H PRN cholecalciferol (vitamin D3) (Vitamin D3) 25 mcg PO DAILY cyanocobalamin (vitamin B-12) (Vitamin B-12) 1,000 mcg PO DAILY dimethyl fumarate (Tecfidera) 240 mg PO BID levothyroxine 88 mcg PO DAILY losartan-hydrochlorothiazide 100-12.5 mg 1 tab PO DAILY omeprazole 20 mg PO DAILY HPI Comments Details: She was doing okay. She was taking dimethyl fumarate twice a day, no medication side effects. MS stable. Arthritis pains in shoulders (R > L), hips, and knees. Has appointment with orthopedics coming up. No falls. Tired during the day. Sleep was not so good, wakes few times during the night to use the bathroom and takes some time to fall back to sleep. Infrequent feeling of restlessness and heaviness in legs, urge to move legs that subsides within 30 minutes. Has happened about 5-6x in the last year. Vision better after cataract surgery. FORMERLY [facility], 1928–1983 Medical History (Updated 09/24/25 @ 08:36 by Nalini Holden CNP) Environmental and seasonal allergies Hyperthyroidism Diabetes mellitus Depression Chronic neurologic disease Osteoarthritis HTN (hypertension) Cataracts, bilateral Skin lesion of scalp Arthritis Multiple sclerosis Surgical History Hx of left cataract extraction (01/07/25) Hx of colonoscopy (2018) Hx of varicose vein ligation History of total left knee replacement (TKR) History of excision of lesion (~10/04/24) Family History Other Family history unknown Social History Are you a primary skin care specialist to a significant other at home: No Do you presently have visiting nurse or other home services: No Unable to assess alcohol history related to: Unknown Patient Tobacco Use Status: Former Tobacco user Review of Systems Const Denies chills, Denies daytime sleepiness, Reports difficulty sleeping, Reports fatigue, Denies fever(s), Denies frequent falls, Denies headache(s), Denies increased appetite, Denies poor appetite, Denies snoring, Denies weakness, Denies weight gain and Denies weight loss Eyes Denies loss of vision ENT Denies vertigo, Denies dizziness, Denies headache(s) and Denies neck pain Card Denies chest pain at rest, Denies chest pain with activity, Denies syncope, Denies leg edema, Denies palpitations, Denies dyspnea and Denies dyspnea on exertion Resp Denies cough, Denies dyspnea, Denies dyspnea on exertion and Denies snoring GI Denies abdominal pain, Denies constipation, Denies heartburn, Denies diarrhea and Denies nausea Denies urinary frequency, Denies urinary incontinence and Denies urinary urgency Musc Denies abnormal gait, Denies back pain, Denies myalgias, Reports arthralgias, Denies neck pain, Denies numbness and Denies tingling Neuro Denies abnormal gait, Denies vertigo, Denies dizziness, Denies syncope, Denies frequent falls, Denies headache(s), Denies lack of coordination, Denies loss of vision, Denies memory loss, Denies numbness, Denies Other visual disturbances, Reports restless legs, Denies seizure-like activity, Denies tingling, Denies paresthesias, Denies tremor(s) and Denies weakness Psych Denies anxiety, Denies depression, Denies auditory hallucinations, Denies memory loss and Denies visual hallucinations Endo Reports fatigue and Denies palpitations Physical Exam Const Other: General Appearance:? normal, in no acute distress. Heart:? S1, S2 normal, no murmurs. Lungs:? clear anteriorly and posteriorly. Musculoskeletal:? normal. Extremities:? no edema. Psych:? alert, oriented, cognitive function intact, cooperative with exam. Neuro Other: Abnormal Neurological Findings:?few beats of rotatory nystagmus on right lateral gaze. Mental Status: alert and oriented X 3. Normal attention, orientation, memory, and affect. Cranial Nerves: Pupils are equal, round, and reactive to light. External ocular muscles are intact. Visual alba are full, no ptosis. Face is symmetrical, no facial weakness or droop. Facial sensations are normal. Tongue protrudes in midline. Palate elevates symmetrically. Shoulder shrugging is normal Motor Examination: Normal muscle tone, bulk and strength. No atrophy or fasciculations. No drift of the extended upper extremities. DTR 2+. Plantars are flexor. Sensory Exam: Normal light touch, temperature, pinprick, vibration, and joint- position sensations. Rhomberg sign is absent. Coordination: No ataxia. No titubation. Gait Exam: Within normal limits. Cerebellar Signs: [id number] is okay. Extrapyramidal System: No tremor, rigidity with normal facial expressions. No bradykinesia. No bradyphrenia. Normal arm swing and posture. No propulsion or retropulsion. Speech: Normal. Results Reviewed Results Reviewed: Laboratory Tests 08/19/25 08:31 Total Bilirubin 0.7 AST 28 ALT 37 H Alkaline Phosphatase 49 Total Protein 7.6 Albumin 4.6 LFTs and other labs in 11/2013 were normal. SGOT/SGPT Nov 2009: 139/244 ; in April 2020 25/39 LFT 12/15/21: normal MRI 2009 shows no new activity MRI brain 08/08/18 shows stable lesions. No change Assessment & Plan Assessment & Plan (1) Multiple sclerosis: Code(s): G35 - Multiple sclerosis Category: Medical Plan: Continue dimethyl fumarate 240mg 1 capsule twice a day. Follow up in 6 months or sooner as needed. (2) Restless leg syndrome: Code(s): G25.81 - Restless legs syndrome Category: Medical Plan: RLS symptoms were infrequent and not significantly bothersome. She was not interested in restarting gabapentin at this time. Plan In 02/2016 she was switched from Betaseron to Rebif because of insurance denial of Betaseron which she had been on for 15 years. Switched from Rebif to Tecfidera in 01/2020 due to liver abnormalities with interferons. Meds tried for RLS: gabapentin 100mg Coding Level of Care Code Est Pt Level 4 (94481) Diagnoses Multiple sclerosis G35 Restless leg syndrome G25.81
== END 2025-09-24 09:02 | disposition home or self-care (01) ==
LOC: HO.HSM 08:23
PROVIDERS: PCP Internal Medicine; Referring Provider Internal Medicine; Visit Provider Registered Nurse
DX: G35.D Multiple sclerosis, unspecified (principal); G25.81 Restless legs syndrome
CPT/HCPCS: 99214

== ENCOUNTER → 2025-09-24 08:22 | Outpatient (BNVA) | payer MEDICARE, SELFPAY | PROVIDERS: PCP Internal Medicine; Referring Provider Internal Medicine; Visit Provider Registered Nurse | DX: G35.D Multiple sclerosis, unspecified (principal); G25.81 Restless legs syndrome | CPT/HCPCS: 99212 ==

== ENCOUNTER 2025-09-30 08:47 | Outpatient (AMB) | payer MEDICARE, SELFPAY ==
--- NOTE | 2025-09-30 08:50 | MHC.OFFVIS ---
Vital Signs 09/30/25 08:55 Height 5 ft 5 in Weight 167 lb BMI 27.8 Intake Visit Reasons: scalp lesion Intake Note: Patient presents for an assessment for scalp lesion. Pt c/o; X2 skin lesion, one lesion is on the scalp and the other lesion is on the right arm. Director Of Rehabilitation Required: No Accompanied by: Self / Same As Patient Allergies NATHALIE Inhibitors Allergy (Mild, Verified 09/30/25 08:57) Cough minerals (Enviro Stress) Allergy (Unknown, Verified 09/30/25 08:57) Unknown vitamin B complex and C (Enviro Stress) Allergy (Unknown, Verified 09/30/25 08:57) Unknown vitamin E (d-alpha tocopherol) (Enviro Stress) Allergy (Unknown, Verified 09/30/25 08:57) Unknown albumin human (From Rebif (with albumin)) Adverse Reaction (Mild, Verified 09/30/25 08:57) elevated transaminase interferon beta-1a (From Rebif (with albumin)) Adverse Reaction (Mild, Verified 09/30/25 08:57) elevated transaminase Medication List - Last Reconciled 09/30/25 by Levar Fenton MD acetaminophen 1,000 mg PO Q6H PRN cholecalciferol (vitamin D3) (Vitamin D3) 25 mcg PO DAILY cyanocobalamin (vitamin B-12) (Vitamin B-12) 1,000 mcg PO DAILY dimethyl fumarate (Tecfidera) 240 mg PO BID levothyroxine 88 mcg PO DAILY losartan-hydrochlorothiazide 100-12.5 mg 1 tab PO DAILY omeprazole 20 mg PO DAILY HPI HPI scalp lesion: Details: She is here was of the scalp lesion. She says she has had this for about 6 months now. This has been increasing in size. This has been bothering her a lot especially with her care. [facility] Medical History (Updated 09/30/25 @ 09:16 by Levar Fenton MD) Scalp lesion Environmental and seasonal allergies Hyperthyroidism Diabetes mellitus Depression Chronic neurologic disease Osteoarthritis HTN (hypertension) Cataracts, bilateral Skin lesion of scalp Arthritis Multiple sclerosis Surgical History Hx of left cataract extraction (01/07/25) Hx of colonoscopy (2018) Hx of varicose vein ligation History of total left knee replacement (TKR) History of excision of lesion (~10/04/24) Family History Other Family history unknown Social History Are you a primary career development specialist to a significant other at home: No Do you presently have visiting nurse or other home services: No Patient Tobacco Use Status: Former Tobacco user Review of Systems Const Denies chills and Denies fever(s) Card Denies chest pain at rest Resp Denies cough GI Denies abdominal pain Denies dysuria Musc Reports back pain, Reports myalgias and Reports arthralgias Physical Exam Vital Signs: BMI result Body Mass Index 27.8 Const General: comfortable and no acute distress Orientation/consciousness: patient oriented x3 HEENT Other: Elevated scalp lesion, about 1.3 cm in diameter, soft, mild patchy ulceration on some areas on the frontal scalp Neck Neck: Yes no lymphadenopathy Resp Auscultation: clear to auscultation bilaterally Cardio Rhythm: regular rhythm GI Palpation (GI): Soft to palpation, nontender and no guarding Neuro General: patient oriented x3 Assessment & Plan Assessment & Plan (1) Scalp lesion: Code(s): L98.9 - Disorder of the skin and subcutaneous tissue, unspecified Category: Medical Plan: She wants this excised. I explained the technique of excision under local anesthesia. I reviewed the risks including but not limited to bleeding, infections and poor healing, as well as the benefits and alternatives. I explained to her what to expect postoperatively. She understands and wants to proceed This will be done in the office on her next visit Coding Level of Care Code New Pt Level 3 (10753) Diagnoses Scalp lesion L98.9
[2025-09-30 08:55] VITALS: BMI 27.8
== END 2025-09-30 09:28 | disposition home or self-care (01) ==
LOC: HO.HGS 08:48
PROVIDERS: PCP Internal Medicine; Visit Provider Surgery
DX: L98.9 Disorder of the skin and subcutaneous tissue, unspecified (principal)
CPT/HCPCS: 99213

== ENCOUNTER → 2025-09-30 08:47 | Outpatient (BNVA) | payer MEDICARE, SELFPAY | PROVIDERS: PCP Internal Medicine; Visit Provider Surgery | DX: Z01.818 Encounter for other preprocedural examination (principal); L98.9 Disorder of the skin and subcutaneous tissue, unspecified | CPT/HCPCS: 99212 ==

== ENCOUNTER 2025-10-07 10:24 | Outpatient (AMB) | payer MEDICARE, SELFPAY | END 2025-10-07 10:25 | disposition home or self-care (01) | LOC: HO.HMGAL 10:24 | PROVIDERS: PCP Internal Medicine; Visit Provider Registered Nurse Emergency | DX: J30.89 Other allergic rhinitis (principal) | CPT/HCPCS: 95117; 95165 ==